=== PATIENT | male | born 1930 | race Caucasian/White ===

== ENCOUNTER 2018-08-01 10:56 | Emergency (ER) | payer MEDICARE, BC ==
[2018-08-01 11:02] VITALS: RESP 18
[2018-08-01] MEDS ORDERED: SODIUM CHLORIDE 0.9% 500 ML 500 ML IV STA (11:16)
--- NOTE | 2018-08-01 11:35 | ED ---
Back Pain HPI - General Chief Complaint: Back Pain/Injury Stated Complaint: fall/back & side pain Time Seen by Provider: 08/01/18 11:08 Source: patient, RN notes reviewed Mode of arrival: ambulatory Limitations: no limitations - History of Present Illness Initial Comments: 87-year-old male presents emergency Department chief complaint of right side pain, abdominal discomfort. Patient states that he fell on Thursday and which this is mechanical fall. Denies any head injury no loss conscious. Patient states he struck the right side of his abdomen and lower rib region. He states now the pain has spread to his mid abdomen. Patient denies any chest pain or shortness of breath. Patient denies any known hematuria, dysuria. Patient states she also has been constipated since the fall states he is unable to have bowel movement. Patient states the pain is mild and states it does worsen with movement. States the worse is when he lays flat. - Related Data Home Medications Medication Instructions Recorded Confirmed Cyanocobalamin [Vitamin B-12 1,000 mcg IM Q30D 09/27/15 08/01/18 Injection] Aspirin EC [Ecotrin Low Dose] 81 mg PO DAILY 08/01/18 08/01/18 Famotidine [Pepcid] 20 mg PO HS 08/01/18 08/01/18 Finasteride [Proscar] 5 mg PO DAILY 08/01/18 08/01/18 Allergies Allergy/AdvReac Type Severity Reaction Status Date / Time No Known Allergies Allergy Verified 08/01/18 11:41 Review of Systems ROS Statement: Those systems with pertinent positive or pertinent negative responses have been documented in the HPI. ROS Other: All systems not noted in ROS Statement are negative. 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 Past Anesthesia/Blood Transfusion Reactions: Postoperative Nausea & Vomiting ( PONV) Past Psychological History: No Psychological Hx Reported Smoking Status: Former smoker - Past Family History Father Family Medical History: CVA/TIA Mother Additional Family Medical History / Comment(s): ASHD General Exam Limitations: no limitations General appearance: alert, in no apparent distress Head exam: Present: atraumatic, normocephalic, normal inspection Eye exam: Present: normal appearance, PERRL, EOMI. Absent: scleral icterus, conjunctival injection, periorbital swelling Neck exam: Present: normal inspection, full ROM. Absent: tenderness, meningismus, lymphadenopathy Respiratory exam: Present: normal lung sounds bilaterally, chest wall tenderness. Absent: respiratory distress, wheezes, rales, rhonchi, stridor Cardiovascular Exam: Present: regular rate, normal rhythm, normal heart sounds. Absent: systolic murmur, diastolic murmur, rubs, gallop, clicks GI/Abdominal exam: Present: soft, tenderness, normal bowel sounds. Absent: distended, guarding, rebound, rigid Back exam: Present: CVA tenderness (R). Absent: CVA tenderness (L) Skin exam: Present: warm, dry, intact, normal color. Absent: rash Course Vital Signs 08/01/18 08/01/18 10:58 13:01 Temperature 97.8 F Pulse Rate 78 73 Respiratory 18 18 Rate Blood Pressure 150/90 136/103 O2 Sat by Pulse 98 96 Oximetry Medical Decision Making - Medical Decision Making 87-year-old male presented for right-sided abdominal pain, flank pain after a fall. CT obtained while with lab work which shows only evidence of constipation. Patient did admit that he's been constipated since Thursday. Patient take [id number] laxative some increase fluid intake and follow-up PCP return parameters were discussed. - Lab Data Result diagrams: 08/01/18 11:15 08/01/18 11:15 Lab Results 08/01/18 08/01/18 08/01/18 Range/Units 11:15 11:15 12:00 WBC 8.1 (3.8-10.6) k/uL RBC 4.93 (4.30-5.90) m/uL Hgb 14.6 (13.0-17.5) gm/dL Hct 46.8 (39.0-53.0) % MCV 94.9 (80.0-100.0) fL MCH 29.6 (25.0-35.0) pg MCHC 31.1 (31.0-37.0) g/dL RDW 12.6 (11.5-15.5) % Plt Count 284 (150-450) k/uL Neutrophils % 69 % Lymphocytes % 20 % Monocytes % 7 % Eosinophils % 2 % Basophils % 0 % Neutrophils # 5.6 (1.3-7.7) k/uL Lymphocytes # 1.7 (1.0-4.8) k/uL Monocytes # 0.5 (0-1.0) k/uL Eosinophils # 0.2 (0-0.7) k/uL Basophils # 0.0 (0-0.2) k/uL Sodium 139 (137-145) mmol/L Potassium 4.6 (3.5-5.1) mmol/L Chloride 104 (98-107) mmol/L Carbon Dioxide 25 (22-30) mmol/L Anion Gap 10 mmol/L BUN 16 (9-20) mg/dL Creatinine 0.63 L (0.66-1.25) mg/dL Est GFR (CKD-EPI)AfAm >90 (>60 ml/min/1.73 sqM) Est GFR (CKD-EPI)NonAf 90 (>60 ml/min/1.73 sqM) Glucose 98 (74-99) mg/dL Calcium 9.6 (8.4-10.2) mg/dL Total Bilirubin 0.7 (0.2-1.3) mg/dL AST 24 (17-59) U/L ALT 26 (21-72) U/L Alkaline Phosphatase 88 (38-126) U/L Total Protein 7.6 (6.3-8.2) g/dL Albumin 4.3 (3.5-5.0) g/dL Lipase 53 (23-300) U/L Urine Color Yellow Urine Appearance Clear (Clear) Urine pH 6.5 (5.0-8.0) Ur Specific [place] 1.011 (1.001-1.035) Urine Protein Negative (Negative) Urine Glucose (UA) Negative (Negative) Urine Ketones Negative (Negative) Urine Blood Negative (Negative) Urine Nitrite Negative (Negative) Urine Bilirubin Negative (Negative) Urine Urobilinogen <2.0 (<2.0) mg/dL Ur Leukocyte Esterase Negative (Negative) - Radiology Data Radiology results: report reviewed, image reviewed CT of abdomen and pelvis shows evidence of constipation no other acute abnormality. Disposition Clinical Impression: Fall, Right flank pain, Constipation Disposition: HOME SELF-CARE Condition: Stable Instructions: Abdominal Pain (ED), Constipation (ED) Additional Instructions: Please return to the Emergency Department if symptoms worsen or any other concerns. Is patient prescribed a controlled substance at d/c from ED?: No Referrals: Eriberto Lewis MD [Primary Care Provider] - 1-2 days Time of Disposition: 13:07
[2018-08-01 11:46] LABS: Basophils % (A) 0 %; Eosinophils # (A) 0.2 k/uL (0-0.7); Eosinophils % (A) 2 %; HCT 46.8 % (39.0-53.0); HGB 14.6 gm/dL (13.0-17.5); Lymphocytes # (A) 1.7 k/uL (1.0-4.8); Lymphocytes % (A) 20 %; MCH 29.6 pg (25.0-35.0); MCHC 31.1 g/dL (31.0-37.0); MCV 94.9 fL (80.0-100.0); Monocytes # (A) 0.5 k/uL (0-1.0); Monocytes % (A) 7 %; Neutrophils # (A) 5.6 k/uL (1.3-7.7); Neutrophils % (A) 69 %; Platelet Count 284 k/uL (150-450); RBC 4.93 m/uL (4.30-5.90); RDW 12.6 % (11.5-15.5); WBC 8.1 k/uL (3.8-10.6)
[2018-08-01 12:05] LABS: ALT 26 U/L (21-72); AST 24 U/L (17-59); Albumin 4.3 g/dL (3.5-5.0); Alkaline Phosphatase 88 U/L (38-126); Anion Gap 10 mmol/L; Blood Urea Nitrogen 16 mg/dL (9-20); Calcium 9.6 mg/dL (8.4-10.2); Carbon Dioxide 25 mmol/L (22-30); Chloride 104 mmol/L (98-107); Glucose 98 mg/dL (74-99); Lipase 53 U/L (23-300); Potassium 4.6 mmol/L (3.5-5.1); Sodium 139 mmol/L (137-145); Total Bilirubin 0.7 mg/dL (0.2-1.3); Total Protein 7.6 g/dL (6.3-8.2)
[2018-08-01 12:22] LABS: Appearance,Urine Clear (Clear); Bilirubin,Urine Negative (Negative); Blood,Urine Negative (Negative); Color,Urine Yellow; Glucose,Urine (UA) Negative (Negative); Ketones,Urine Negative (Negative); Leukocyte Esterase,Urine Negative (Negative); Nitrite,Urine Negative (Negative); PH, Urine 6.5 (5.0-8.0); Protein,Urine Negative (Negative); Specific Gravity,Urine 1.011 (1.001-1.035); Urobilinogen,Urine <2.0 mg/dL (<2.0)
--- NOTE | 2018-08-01 12:54 | CT ---
EXAMINATION TYPE: CT abdomen pelvis w con DATE OF EXAM: 08/01/2018 REFERENCE: NONE HISTORY: pain HISTORY: Right sided back and side pain REFERENCE: NONE CT DLP: 923.3 mGy Automated exposure control for dose reduction was used. TECHNIQUE: Helical acquisition through the abdomen and pelvis was obtained following the oral ingesti on of without Oral Contrast and following intravenous administration of 100 mL of Isovue 300. The pradeep a was reformatted in axial, coronal and sagittal projections. FINDINGS: There is some dependent atelectasis and scarring at the lung bases. There is no pleural or pericardial fluid. The heart is not enlarged. Within the abdomen, the liver, spleen and gallbladder are unremarkable. Both adrenal glands are normal. Both kidneys demonstrate function and appear morphologically normal. The pancreas is unremarkable. There is moderate atheromatous calcification of the visualized arterial tree. There is no significant retroperitoneal, iliac or inguinal adenopathy. The prostate is enlarged. The bladder wall is mildly thickened. This may be secondary to chronic blad rolando outlet obstruction. There is no significant diverticular change. There is no radiographic evidence of diverticulitis. The re is a large amount of stool within the colon. The appendix is not visualized. Small bowel loops are normal. There is no free fluid and no free air identified. There is mild hypertrophic spondylosis and facet arthropathy within the spine. IMPRESSION: 1. CONSTIPATION. 2. PROSTATIC ENLARGEMENT WITH THICKENING OF THE BLADDER WALL. 3. MINIMAL DEGENERATIVE CHANGE WITHIN THE SPINE.
[2018-08-01 13:03] VITALS: PULSE 73
[2018-08-01 13:14] VITALS: BP 120/91
[2018-08-01 13:18] VITALS: TEMP 97.4
== END 2018-08-01 13:17 | disposition home or self-care (01) ==
LOC: EC 10:56
DX: K59.00 Constipation, unspecified (principal); S39.92XA Unspecified injury of lower back, initial encounter; K21.9 Gastro-esophageal reflux disease without esophagitis; M19.90 Unspecified osteoarthritis, unspecified site; Z79.82 Long term (current) use of aspirin; Z79.899 Other long term (current) drug therapy; Z96.651 Presence of right artificial knee joint; Z87.891 Personal history of nicotine dependence; W19.XXXA Unspecified fall, initial encounter
CPT/HCPCS: 36415; 80053; 83690; 85025; 81003; 74177; 99284; 96360; Q9967

== ENCOUNTER → 2018-09-08 | Outpatient (CLI) | payer MEDICARE, BC ==
--- NOTE | 2018-09-08 13:03 | XR ---
EXAMINATION TYPE: XR thoracic spine complete DATE OF EXAM: 09/08/2018 CLINICAL HISTORY: pain TECHNIQUE: Frontal, lateral, and swimmer's view of thoracic spine are obtained. COMPARISON: None. FINDINGS: There is loss of vertebral body height noted at several levels mild in degree of uncertain age and/or etiology. Degenerative disc space narrowing is seen throughout. No bony destructive proces s is appreciated. IMPRESSION: Mild multilevel loss of height noted involving several thoracic vertebral segments of unc ertain age and/or etiology. ICD 10 NO FRACTURE, INITIAL EVALUATION
== END ==
LOC: RADXRMAIN 12:16
PROVIDERS: ATTEND Internal Medicine
DX: M47.24 Other spondylosis with radiculopathy, thoracic region (principal); G58.8 Other specified mononeuropathies
CPT/HCPCS: 72072

== ENCOUNTER → 2018-09-21 | Outpatient (CLI) | payer MEDICARE, BC ==
--- NOTE | 2018-09-21 15:10 | NM ---
EXAMINATION TYPE: NM bone/joint limited DATE OF EXAM: 09/21/2018 COMPARISON: NONE HISTORY: Spondylosis with radiculopathy TECHNIQUE: After the intravenous administration of 25.4 mCi Tc 99m MDP. Images acquired 3.5 hours p ost injection. Multiple views of thoracic level are submitted. Findings: There are are some focal radiotracer accumulation is present within the thoracic region. Th is would include 2 areas on the posterior right rib, additional area in the posterior lateral right 1 1th rib region. Some uptake may be present on the posterior lateral left ninth rib. There is focal radiotracer accumulation within the T10 vertebral level. On the upper anterior lateral portions of the ribs in the region of the right anterior lateral rib th ere is focal uptake along the fourth and fifth anterior lateral left ribs. IMPRESSION: 1. Suspicious focal radiotracer accumulation within the region of the T10 vertebral level. Correlate for acute compression. Metastatic disease should be considered. This area could be compatible with an acute compression deformity. Compression deformity is identified corresponding 09/08/2018 comparison thoracic spine. 2. There are scattered bilateral focal areas of rib uptake. Distribution is atypical for post trauma , which could be considered. Consider metastatic disease.
== END ==
LOC: RADNMMAIN 10:08
PROVIDERS: ATTEND Internal Medicine
DX: G58.8 Other specified mononeuropathies (principal); M47.24 Other spondylosis with radiculopathy, thoracic region
CPT/HCPCS: 78300; A9503

== ENCOUNTER → 2018-12-08 | Outpatient (CLI) | payer MEDICARE, BC ==
--- NOTE | 2018-12-08 16:10 | XR ---
EXAMINATION TYPE: XR ribs bilateral DATE OF EXAM: 12/08/2018 COMPARISON: 09/21/2018 bone scan HISTORY: Bilateral anterior rib pain after fall TECHNIQUE: Frontal and oblique views of the bilateral ribs were obtained FINDINGS: There is generalized osseous demineralization. There are healed fracture deformities of the right eig hth through 10th lateral ribs and sixth rib. On the left there are healed fracture deformities of the 8 and seventh ribs at their lateral margin and subtle anterior ninth rib fracture. The posterior lat eral right rib 11 fracture seen on the prior nuclear medicine exam and uptake in the T10 vertebral stanley dy are not demonstrated radiographically. No acute fracture of the ribs is seen. IMPRESSION: Bilateral healed fractures as described above. There is no correlate for the previously s een posterior lateral right rib 11 fracture nor uptake in the 10th vertebral body as seen on the prio r nuclear medicine bone scan of 09/21/2018. If there is further concern CT thorax could evaluate for os seous lesion.
== END | disposition home or self-care (01) ==
LOC: RADXRMAIN 11:23
PROVIDERS: ATTEND Internal Medicine
DX: G58.8 Other specified mononeuropathies (principal); Z87.81 Personal history of (healed) traumatic fracture
CPT/HCPCS: 71110

== ENCOUNTER 2020-05-28 12:35 | Inpatient (IN) | payer MEDICARE, BC ==
--- NOTE | 2020-05-28 13:37 | ED ---
General Adult HPI - General Chief complaint: Neuro Symptoms/Deficit Stated complaint: Weakness, Slurred Speech Time Seen by Provider: 05/28/20 13:05 Source: patient, family, RN notes reviewed Mode of arrival: ambulatory Limitations: no limitations - History of Present Illness Initial comments: Patient is a pleasant 89-year-old male presenting to the emergency Department with complaints of episodes of slurred speech. Onset of symptoms was 2-3 days ago. Patient has had at least 5 or 6 episodes, possibly more. Patient does have chronic dizziness and lightheadedness however this is a little but worse than normal. Patient has chronic leg weakness that is unchanged. Currently patient is symptom-free. No headache. No upper extremity weakness. No history of similar symptoms previously. - Related Data Home Medications Medication Instructions Recorded Confirmed Cyanocobalamin [Vitamin B-12 1,000 mcg IM Q30D 09/27/15 05/28/20 Injection] Finasteride [Proscar] 5 mg PO DAILY 08/01/18 05/28/20 Multivitamins, Thera [Multivitamin 1 tab PO HS 05/28/20 05/28/20 (formulary)] Omeprazole 20 mg PO HS 05/28/20 05/28/20 Tamsulosin [Flomax] 0.4 mg PO W/SUPPER 05/28/20 05/28/20 Allergies Allergy/AdvReac Type Severity Reaction Status Date / Time No Known Allergies Allergy Verified 05/28/20 14:13 Review of Systems ROS Statement: Those systems with pertinent positive or pertinent negative responses have been documented in the HPI. ROS Other: All systems not noted in ROS Statement are negative. Constitutional: Denies: fever Eyes: Denies: eye pain ENT: Denies: ear pain Respiratory: Denies: cough Cardiovascular: Denies: chest pain Endocrine: Denies: fatigue Gastrointestinal: Denies: abdominal pain Genitourinary: Denies: urgency Musculoskeletal: Denies: back pain Skin: Denies: rash Neurological: Reports: as per HPI, vertigo. 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 Past Anesthesia/Blood Transfusion Reactions: Postoperative Nausea & Vomiting (PONV) Past Psychological History: No Psychological Hx Reported Smoking Status: Never smoker Past Alcohol Use History: Rare Past Drug Use History: None Reported - Past Family History Father Family Medical History: CVA/TIA Mother Additional Family Medical History / Comment(s): ASHD General Exam Limitations: no limitations General appearance: alert, in no apparent distress Head exam: Present: normocephalic Eye exam: Present: normal appearance, PERRL, EOMI. Absent: nystagmus ENT exam: Present: normal oropharynx Neck exam: Present: normal inspection Respiratory exam: Present: normal lung sounds bilaterally Cardiovascular Exam: Present: regular rate, normal rhythm GI/Abdominal exam: Present: soft. Absent: tenderness Extremities exam: Present: normal inspection Neurological exam: Present: alert, oriented X3, CN II-XII intact. Absent: motor sensory deficit Expanded Neurological exam: Present: protecting the airway Patient oriented to: Present: person, place, time Speech: Present: fluid speech Cranial nerves: EOM's Intact: Normal Sensory exam: Upper Extremity Light Touch: Normal, Lower Extremity Light Touch: Normal Motor strength exam: RUE: 5, LUE: 5, RLE: 5, LLE: 5 Eye Response: (4) open spontaneously Motor Response: (6) obeys commands Verbal Response: (5) oriented Psychiatric exam: Present: normal affect, normal mood Skin exam: Present: normal color Course Vital Signs 05/28/20 05/28/20 05/28/20 12:53 14:22 15:12 Temperature 97.9 F Pulse Rate 79 79 79 Respiratory 18 14 14 Rate Blood Pressure 138/84 134/102 143/93 O2 Sat by Pulse 97 97 96 Oximetry EKG Findings - EKG Comments: EKG Findings:: Normal sinus rhythm 74. For screening AV block NH of 208. QRS 96. QT 392. QTC 435. Normal axis. Normal QRS. No acute ST change. Medical Decision Making - Medical Decision Making Patient reevaluated and resting comfortably at bedside. Patient family updated on results and plan. Case was discussed in detail with Dr. Fontana, who will admit for hospital call. - Lab Data Result diagrams: 05/28/20 13:30 05/28/20 13:30 Lab Results 05/28/20 05/28/20 05/28/20 Range/Units 13:30 13:30 13:30 WBC 7.6 (3.8-10.6) k/uL RBC 4.66 (4.30-5.90) m/uL Hgb 14.6 (13.0-17.5) gm/dL Hct 44.7 (39.0-53.0) % MCV 96.0 (80.0-100.0) fL MCH 31.4 (25.0-35.0) pg MCHC 32.7 (31.0-37.0) g/dL RDW 12.4 (11.5-15.5) % Plt Count 239 (150-450) k/uL Neutrophils % 61 % Lymphocytes % 25 % Monocytes % 7 % Eosinophils % 6 % Basophils % 0 % Neutrophils # 4.6 (1.3-7.7) k/uL Lymphocytes # 1.9 (1.0-4.8) k/uL Monocytes # 0.5 (0-1.0) k/uL Eosinophils # 0.5 (0-0.7) k/uL Basophils # 0.0 (0-0.2) k/uL PT 10.2 (9.0-12.0) sec INR 1.0 (<1.2) APTT 23.6 (22.0-30.0) sec Sodium 137 (137-145) mmol/L Potassium 4.2 (3.5-5.1) mmol/L Chloride 101 (98-107) mmol/L Carbon Dioxide 30 (22-30) mmol/L Anion Gap 6 mmol/L BUN 12 (9-20) mg/dL Creatinine 0.64 L (0.66-1.25) mg/dL Est GFR (CKD-EPI)AfAm >90 (>60 ml/min/1.73 sqM) Est GFR (CKD-EPI)NonAf 88 (>60 ml/min/1.73 sqM) Glucose 89 (74-99) mg/dL Calcium 9.3 (8.4-10.2) mg/dL Total Bilirubin 0.7 (0.2-1.3) mg/dL AST 23 (17-59) U/L ALT 17 (4-49) U/L Alkaline Phosphatase 69 (38-126) U/L Total Protein 6.9 (6.3-8.2) g/dL Albumin 3.9 (3.5-5.0) g/dL - Radiology Data Radiology results: report reviewed (Computed tomography scan of the brain shows degenerative and nonspecific white matter changes. No acute hemorrhage or mass effect. Sinusitis. CT angios without acute abnormality.), image reviewed (Chest x-ray shows atelectasis versus early infiltrate. Tortuous versus ectatic/aneurysm thoracic order.) Disposition Clinical Impression: Transient cerebral ischemia Disposition: ADMITTED IP TO THIS HOSP Is patient prescribed a controlled substance at d/c from ED?: No Referrals: Rocco Rose MD [Primary Care Provider] - 1-2 days Decision Time: 16:17
[2020-05-28 13:46] LABS: Basophils % (A) 0 %; Eosinophils # (A) 0.5 k/uL (0-0.7); Eosinophils % (A) 6 %; HCT 44.7 % (39.0-53.0); HGB 14.6 gm/dL (13.0-17.5); Lymphocytes # (A) 1.9 k/uL (1.0-4.8); Lymphocytes % (A) 25 %; MCH 31.4 pg (25.0-35.0); MCHC 32.7 g/dL (31.0-37.0); Mean Platelet Volume 6.4; Monocytes # (A) 0.5 k/uL (0-1.0); Monocytes % (A) 7 %; Neutrophils # (A) 4.6 k/uL (1.3-7.7); Neutrophils % (A) 61 %; Platelet Count 239 k/uL (150-450); RBC 4.66 m/uL (4.30-5.90); RDW 12.4 % (11.5-15.5); WBC 7.6 k/uL (3.8-10.6)
[2020-05-28 13:54] LABS: ALT 17 U/L (4-49); AST 23 U/L (17-59); African American GFR (CKD) >90 (>60 ml/min/1.73 sqM); Albumin 3.9 g/dL (3.5-5.0); Alkaline Phosphatase 69 U/L (38-126); Anion Gap 6 mmol/L; Blood Urea Nitrogen 12 mg/dL (9-20); Calcium 9.3 mg/dL (8.4-10.2); Carbon Dioxide 30 mmol/L (22-30); Chloride 101 mmol/L (98-107); Glucose 89 mg/dL (74-99); Non-African American GFR(CKD) 88 (>60 ml/min/1.73 sqM); Potassium 4.2 mmol/L (3.5-5.1); Sodium 137 mmol/L (137-145); Total Bilirubin 0.7 mg/dL (0.2-1.3); Total Protein 6.9 g/dL (6.3-8.2)
[2020-05-28 13:59] LABS: Partial Thromboplastin Time 23.6 sec (22.0-30.0); Prothrombin Time 10.2 sec (9.0-12.0)
--- NOTE | 2020-05-28 14:52 | CT ---
EXAMINATION TYPE: CT brain wo con for TPA DATE OF EXAM: 05/28/2020 COMPARISON: None HISTORY: Weakness with slurred speech for last [address] DLP: 1176.8 mGycm Automated exposure control for dose reduction was used. FINDINGS: Moderate generalized degenerative change. Nonspecific low attenuation in the white matter. No evidenc e of acute hemorrhage or mass effect. Low attenuation left basal ganglia suggestive of remote ischemi a. Calvarium intact. Changes of sinusitis. Craniocervical junction maintained. Sella turcica has a normal appearance. Nasal septal deviation not ed. Orbits symmetric. IMPRESSION: DEGENERATIVE AND NONSPECIFIC WHITE MATTER CHANGES MOST TYPICAL OF REMOTE WHITE MATTER ISCHEMIA. NO AC CHENG HEMORRHAGE OR MASS EFFECT. EXTENSIVE CHANGES OF SINUSITIS.
--- NOTE | 2020-05-28 15:13 | XR ---
EXAMINATION TYPE: XR chest 2V DATE OF EXAM: 05/28/2020 COMPARISON: 12/08/2018 and 09/08/2018 HISTORY: 89-year-old male confusion, altered mental status TECHNIQUE: PA and lateral views FINDINGS: Heart normal size. Tortuous/ectatic thoracic aorta. Hyperinflation. No tona consolidation. No pleura l effusion. Patchy posterior basilar opacity on the lateral view. Mild anterior wedging of a midthora cic vertebral body unchanged from 2019. IMPRESSION: Patchy posterior basilar atelectasis versus early infiltrate. Correlate with patient's symptoms. Tort uous versus ectatic/aneurysmal thoracic aorta.
--- NOTE | 2020-05-28 15:22 | CT ---
EXAMINATION TYPE: CT angio head neck DATE OF EXAM: 05/28/2020 HISTORY: Generalized weakness with slurred speech for 2 days COMPARISON: 05/28/2020 CT DLP: 498.9 mGycm. Automated Exposure Control for Dose Reduction was Utilized. TECHNIQUE: CTA scan of the neck is performed with IV Contrast, patient injected with 65 mL of Isovue 370, axial images are obtained, coronal and sagittal reformatted images are reviewed. Three-D recons tructed images are created on an independent workstation and reviewed. FINDINGS: Biapical pleural thickening. Changes of COPD noted. There is atherosclerotic change of the aorta. Origins of the great vessels appear to be patent. Subclavian arteries are patent. Carotid bifu rcations are patent. The visualized portions of the internal carotid arteries are patent. Changes of chronic sinusitis noted. Airways patent. Vocal cords symmetric. Thyroid enhances normally. Shotty adenopathy in the neck with no pathologic adenopathy. Hypertrophic and degenerative changes o f the spine are noted. Left vertebral artery is dominant. Vertebrobasilar system is patent. Posterior cerebral arteries are patent Middle and anterior cerebral arteries appear to be patent. No sizable aneurysm or vascular malformati on. IMPRESSION: 1. Carotid bifurcations as well as visualized intracranial arterial system appears to be patent with no sizable aneurysm.
[2020-05-28] MEDS ORDERED: ASPIRIN 325 MG TAB PO STA (16:16)
[2020-05-28] MEDS: SODIUM CHLORIDE 0.9% 1,000 ML IV SCH ×2 (16:36→21:03)
[2020-05-28] MEDS ORDERED: HYDROcodone/APAP 5-325MG 1 EACH TAB PO PRN (20:38)
[2020-05-28] MEDS ORDERED: ALPRAZolam 0.25 MG TAB PO PRN (20:38)
[2020-05-28] MEDS: HEPARIN SODIUM,PORCINE 5,000 UNIT/ML 1 ML VIAL SQ SCH (21:05)
[2020-05-28] MEDS: PANTOPRAZOLE 40 MG TABLET PO SCH (21:05)
[2020-05-28] MEDS: MULTIVITAMINS, THERA 1 EACH TAB PO SCH (21:05)
--- NOTE | 2020-05-28 22:12 | HP ---
HISTORY AND PHYSICAL CHIEF COMPLAINTS: Slurring of speech as well as weakness. HISTORY OF PRESENT ILLNESS: This 89-year-old gentleman with a past medical history of asthma, GERD, DJD, hernia surgery, orthopedic surgery, was complaining of weakness. The patient had episodes of slurred speech. He was taken to the emergency room, which happened about 2-3 days ago. The patient had multiple episodes. The patient was also complaining of weakness. His weakness was possibly because of DJD in the legs, but the weakness in both legs increased, according to him. There is no history of any fever, rigor or chills. No history of headache, loss of consciousness, seizures. After the ER, the patient had multiple evaluations, including CT brain, which showed degenerate nonspecific white matter changes and remote ischemia. No acute changes are noted. CT angiography showed no sizable aneurysm or other abnormalities. Chest x-ray showed patchy atelectasis in the posterior part. EKG showed normal sinus rhythm. Patient is admitted for further evaluation and treatment. There is no history of any fever, rigor or chills. No history of headache, loss of consciousness, seizures. PAST MEDICAL HISTORY: Asthma, GERD, history of DJD, COPD, hernia repair, orthopedic surgery. MEDICATIONS: Flomax, omeprazole, multivitamins, Proscar, vitamin B12. ALLERGIES: NONE. FAMILY HISTORY: History of CVA, TIA in the family. SOCIAL HISTORY: Previous history of smoking. No current smoking or alcohol intake. REVIEW OF SYSTEMS: ENT: Diminished hearing. Diminished vision. CARDIOVASCULAR SYSTEM: No angina, palpitations. RESPIRATORY SYSTEM: As mentioned earlier. GI: No nausea, vomiting. : No dysuria or retention. NERVOUS SYSTEM: As mentioned earlier. ALLERGY/IMMUNOLOGY: No asthma or hayfever. MUSCULOSKELETAL: As mentioned earlier. HEMATOLOGY/ONCOLOGY: No history of anemia. ENDOCRINE: No history of diabetes, hypothyroidism. CONSTITUTIONAL: As mentioned earlier. DERMATOLOGY: Negative. RHEUMATOLOGY negative. PSYCHIATRY as mentioned earlier. PHYSICAL EXAMINATION: Alert and x3. Pulse 85, blood pressure 150/97, respiration 14, temperature 97.9, pulse ox 96% on 2 L. HEENT: Conjunctivae normal. NECK: No jugular venous distention. CARDIOVASCULAR SYSTEM: S1, S2 muffled. RESPIRATORY SYSTEM: Breath sounds diminished at the bases. A few scattered rhonchi and crackles. ABDOMEN: Soft, non-tender. No mass palpable. LEGS: No edema. No swelling. NERVOUS SYSTEM: Higher functions as mentioned earlier. Cranial nerves 2 through 12 grossly intact. No nystagmus. No diplopia. Upper limbs are normal. Finger-nose coordination is normal. Otherwise, lower limbs appear to be 4+ power in both lower limbs. No sensory abnormalities. LYMPHATICS: No lymph node palpable in neck, axillae or groin. L JOINTS: No active deforming arthropathy. LABS: CBC within normal limits. Creatinine 0.64. ASSESSMENT: 1. Slurring of speech and bilateral leg weakness; rule out transient ischemic attack. 2. Abnormal chest x-ray, possibly secondary to chronic fibrosis; rule out acute pneumonia. 3. History of asthma. 4. History of gastroesophageal reflux disease. 5. History of degenerative joint disease. 6. History of chronic obstructive pulmonary disease. 7. Remote history of nicotine dependence. 8. History of vertigo in the past. 9. Degenerative joint disease. 10.History of postoperative nausea, vomiting. RECOMMENDATIONS AND DISCUSSION: In this 89-year-old gentleman who presented with multiple complex medical issues, we will monitor the patient closely. Neuro checks. Full neurovascular workup. A CT angio has already been done. I would recommend neurology consultation as well as a 2D echo with Doppler. Antiplatelet agents. Check lipids. Monitor blood pressure closely. Resume the home medications. Prognosis is guarded because of multiple complex medical issues. Further recommendations to follow. MMODL / IJN: [id number] /
[2020-05-28 23:50] LABS: Appearance,Urine Clear (Clear); Bilirubin,Urine Negative (Negative); Blood,Urine Negative (Negative); Color,Urine Yellow; Glucose,Urine (UA) Negative (Negative); Ketones,Urine Negative (Negative); Leukocyte Esterase,Urine Negative (Negative); Nitrite,Urine Negative (Negative); PH, Urine 7.5 (5.0-8.0); Protein,Urine Negative (Negative); Specific Gravity,Urine 1.022 (1.001-1.035); Urobilinogen,Urine <2.0 mg/dL (<2.0)
[2020-05-29 07:53] LABS: Basophils % (A) 0 %; Eosinophils # (A) 0.5 k/uL (0-0.7); Eosinophils % (A) 8 %; HCT 44.2 % (39.0-53.0); HGB 14.1 gm/dL (13.0-17.5); Lymphocytes % (A) 28 %; MCH 31.1 pg (25.0-35.0); MCV 97.1 fL (80.0-100.0); Mean Platelet Volume 6.5; Monocytes # (A) 0.5 k/uL (0-1.0); Monocytes % (A) 7 %; Neutrophils # (A) 3.9 k/uL (1.3-7.7); Neutrophils % (A) 55 %; Platelet Count 230 k/uL (150-450); RBC 4.55 m/uL (4.30-5.90); RDW 12.5 % (11.5-15.5)
[2020-05-29 08:06] LABS: African American GFR (CKD) >90 (>60 ml/min/1.73 sqM); Anion Gap 4 mmol/L; Blood Urea Nitrogen 10 mg/dL (9-20); Calcium 9.3 mg/dL (8.4-10.2); Carbon Dioxide 31 mmol/L (22-30); Chloride 103 mmol/L (98-107); Cholesterol 108 mg/dL (<200); Glucose 101 mg/dL (74-99); HDL Cholesterol 40 mg/dL (40-60); LDL Cholesterol,Calculated 56 mg/dL (0-99); Non-African American GFR(CKD) 88 (>60 ml/min/1.73 sqM); Potassium 4.4 mmol/L (3.5-5.1); Sodium 138 mmol/L (137-145); Triglycerides 61 mg/dL (<150)
[2020-05-29] MEDS: HEPARIN SODIUM,PORCINE 5,000 UNIT/ML 1 ML VIAL SQ SCH ×2 (08:33→20:22)
[2020-05-29] MEDS: FINASTERIDE 5 MG TAB PO SCH (08:33)
--- NOTE | 2020-05-29 09:36 | CT ---
EXAMINATION TYPE: CT chest wo con DATE OF EXAM: 05/29/2020 COMPARISON: None HISTORY: possible fibrosis CT DLP: 362.5 mGycm, Automated exposure control for dose reduction was used. CONTRAST: Performed injected with 0 mL of Isovue 300. TECHNIQUE: Axial images were obtained at 5 mm thick sections. Reconstructed images are reviewed on [employer] computer in the coronal plane. FINDINGS: Portion of the thyroid visualized is normal. There are scattered infiltrates at the bilateral lung bases. Emphysematous changes are present. No enlarged mediastinal or hilar adenopathy is evident. Scattered small shotty lymph nodes are prese nt. No suspicious enlarged mediastinal or hilar lymph nodes are evident. Lack of contrast limits the hilar node evaluation. The aortic arch appears to be high riding in the apex. The ascending aorta floridalma meter at the level of the main pulmonary artery is 4.1 cm. The main pulmonary artery diameter at the bifurcation is 3.0 cm. Mild coronary artery calcification is present. Limited CT sections are obtained through the upper abdomen. Abdomen is essentially unremarkable. IMPRESSIONS: 1. Scattered of posterior inferior mild infiltrates can be related to subsegmental atelectasis. 2. COPD
[2020-05-29] MEDS: ASPIRIN 325 MG TAB PO SCH (11:19)
--- NOTE | 2020-05-29 12:20 | ECHOF ---
Referral Reason:Thrombus MEASUREMENTS -------- HEIGHT: 177.8 cm WEIGHT: 72.6 kg BP: 140/83 RVIDd: 2.1 cm (< 3.3) IVSd: 1.4 cm (0.6 - 1.1) LVIDd: 3.5 cm (3.9 - 5.3) LVPWd: 1.6 cm (0.6 - 1.1) IVSs: 1.9 cm LVIDs: 2.1 cm LVPWs: 1.7 cm Ao Diam: 3.3 cm (2.0 - 3.7) AV Cusp: 1.7 cm (1.5 - 2.6) LA Diam: 2.0 cm (2.7 - 3.8) MV EXCURSION: 13.189 mm (> 18.000) MV EF SLOPE: 73 mm/s (70 - 150) EPSS: 0.7 cm MV E Francisco: 0.57 m/s MV DecT: 259 ms MV A Francisco: 0.69 m/s MV E/A Ratio: 0.82 RAP: 5.00 mmHg RVSP: 29.86 mmHg FINDINGS -------- Sinus rhythm. This was a technically adequate study. The left ventricular size is normal. There is moderate concentric left ventricular hypertrophy. O verall left ventricular systolic function is normal with, an EF between 55 - 60 %. The right ventricle is normal in size. The left atrial size is normal. The right atrial size is normal. There is mild aortic valve sclerosis. Mild mitral annular calcification present. Mild mitral regurgitation is present. The tricuspid valve appears structurally normal. Mild tricuspid regurgitation present. Right vent ricular systolic pressure is normal at < 35 mmHg. The pulmonic valve was not well visualized. There is no pulmonic regurgitation present. The aortic root size is normal. Normal inferior vena cava with normal inspiratory collapse consistent with estimated right atrial pre ssure of 5 mmHg. There is a small, generalized pericardial effusion present. CONCLUSIONS -------- 1. There is moderate concentric left ventricular hypertrophy. 2. Overall left ventricular systolic function is normal with, an EF between 55 - 60 %. 3. The left atrial size is normal. 4. There is mild aortic valve sclerosis. 5. Mild mitral annular calcification present. 6. Mild mitral regurgitation is present. 7. Mild tricuspid regurgitation present. 8. There is a small, generalized pericardial effusion present. PRINCIPAL JAVA DEVELOPER: Deirdre Bloom RDCS
--- NOTE | 2020-05-29 14:02 | P.CNNES ---
History of Present Illness Consult date: 05/29/20 Requesting physician: Be Trevizo Reason for Consult: TIA History of Present Illness: Patient is a 89-year-old male, came to the hospital yesterday at around 12:30 PM, for evaluation of episodes of slurred speech, that started 2-3 days ago. As per EMS records, patient had at least 5 or 6 episodes or possibly more. He has chronic dizziness and lightheadedness, which is slightly worse than normal. He is chronically leg weakness that is unchanged. Patient tells me that he has chronic slight weakness of the legs and aching, which his primary physician felt was related to arthritis of the lumbar spine. However yesterday he was trying to get up from chair, felt funny, legs were weaker than usual. He has been otto ving slurred speech off and on, lasting for a short while for the last 7 days. At present he complains of no symptoms. He states that he had slight slurred speech earlier today but otherwise has been feeling better. Vital signs on arrival blood pressure 138/84, pulse rate 79, temperature 97.9. Blood pressure was normal CBC, PT/PTT, CMP, UA are all normal or negative. CT head showed degenerative and nonspecific white matter changes most typical of remote white matter ischemia. No acute hemorrhage or mass effect. CTA of head and neck showed no significant stenosis or aneurysm. EKG shows normal sinus rhythm. Chest x-ray showed patchy posterior basilar atelectasis versus early infiltrate. Tortuous versus ectatic aneurysmal thoracic aorta.CT of the chest showed scattered posterior nferior mild infiltrates, can be related to subsegmental atelectasis. COPD Patient does not take any antiplatelets at home. He has been started on aspirin 325 mg yesterday. patient states that he did take an aspirin5 days ago only once. Does not take it regularly. Patient denies any nausea or vomiting. Denies any diplopia or facial droop. Denies any history of hypertension or diabetes. He has smoked 1 pack per day for 50 years, quit 20 years ago. Review of Systems as above in detail, otherwise unremarkable. Denies any chest pain shortness of breath wheezing or cough. He has some aching in the legs, some weakness in the legs. 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 Past Anesthesia/Blood Transfusion Reactions: Postoperative Nausea & Vomiting (PONV) Past Psychological History: No Psychological Hx Reported Additional Psychological History / Comment(s): PT STATED HE LOST HIS IN AUGUST 2015. HAS SOME PERIODS OF SADNESS. Smoking Status: Never smoker Past Alcohol Use History: Rare Additional Past Alcohol Use History / Comment(s): QUIT SMOKING 1995, STARTED 1950, SMOKED 1PPD Past Drug Use History: None Reported - Past Family History Father Family Medical History: CVA/TIA Mother Additional Family Medical History / Comment(s): ASHD Medications and Allergies Home Medications Medication Instructions Recorded Confirmed Type Cyanocobalamin [Vitamin B-12 1,000 mcg IM Q30D 09/27/15 05/28/20 History Injection] Finasteride [Proscar] 5 mg PO DAILY 08/01/18 05/28/20 History Multivitamins, Thera [Multivitamin 1 tab PO HS 05/28/20 05/28/20 History (formulary)] Omeprazole 20 mg PO HS 05/28/20 05/28/20 History Tamsulosin [Flomax] 0.4 mg PO W/SUPPER 05/28/20 05/28/20 History Allergies Allergy/AdvReac Type Severity Reaction Status Date / Time No Known Allergies Allergy Verified 05/28/20 14:13 Physical Examination - Vital Signs Vital Signs: Vital Signs Temp Pulse Pulse Pulse Pulse Resp BP 05/29/20 08:29 98.1 F 79 18 05/29/20 03:58 97.9 F 77 16 05/28/20 23:21 97.8 F 68 81 81 18 05/28/20 20:00 97.3 F L 83 16 05/28/20 19:35 85 18 05/28/20 18:46 97.9 F 85 14 150/97 05/28/20 18:35 97.9 F 85 14 150/97 05/28/20 17:38 98 F 76 14 149/101 05/28/20 16:44 97.6 F 74 14 148/91 05/28/20 16:39 97.6 F 86 14 148/91 05/28/20 16:00 87 21 139/101 05/28/20 15:12 79 14 143/93 05/28/20 14:22 79 14 134/102 05/28/20 12:53 97.9 F 79 18 138/84 BP BP BP Pulse Ox 05/29/20 08:29 130/83 95 05/29/20 03:58 140/83 91 L 05/28/20 23:21 149/88 143/81 133/82 93 L 05/28/20 20:00 126/82 98 05/28/20 19:35 138/76 94 L 05/28/20 18:46 96 05/28/20 18:35 96 05/28/20 17:38 96 05/28/20 16:44 96 05/28/20 16:39 94 L 05/28/20 16:00 98 05/28/20 15:12 96 05/28/20 14:22 97 05/28/20 12:53 97 Intake and Output 05/28/20 05/29/20 05/29/20 22:59 06:59 14:59 Intake Total 240 120 420 Output Total 400 1 Balance 240 -280 419 Intake: Oral 240 120 420 Output: Urine 400 1 Other: # Voids 1 1 Weight 72.575 kg 73 kg On examination patient is an elderly male, very pleasant in no acute distress. Patient is alert awake oriented to time place and person. Speech and language functions are normal. Attention and concentration fund of knowledge is adequate. On cranial nerve examination pupils are round and reactive to light, visual kuhn are full on confrontation, extraocular muscles are intact with no nystagmus. Face is symmetric, tongue protrudes the midline. Palatal elevation and sensation normal, hearing is slightly decreased, and shoulder shrug normal. facial sensations normal. On muscle strength testing there is no pronator drift and the strength is normal in arms and legs distally and proximally. Reflexes are very hypoactive and plantars are downgoing. Sensory touch is equal. No ataxia for [id number] testing. Tone and bulk of muscles normal. Gait deferred. There is no carotid bruit or murmur, S1 and S2 audible peripheral pulses present no edema. Chest is clear, abdomen soft nontender. Results - Laboratory Findings CBC and BMP: 05/29/20 07:16 05/29/20 07:16 Abnormal Lab Findings: Abnormal Labs 05/28/20 05/29/20 13:30 07:16 Carbon Dioxide 31 H Creatinine 0.64 L 0.65 L Glucose 101 H Assessment and Plan Assessment: * Recurrent episodes of slurred speech, possible TIA. CTA of head and neck showed no large vessel disease. * X tobacco use. Plan: * 2-D echo showed moderate concentric LVH, EF is between 55-60%. Left atrial size is normal. Mild aortic valve sclerosis. * CTA of head and neck showed no significant stenosis or occlusion. * lipid panel showed cholesterol 108, LDL 56, HDL 40 and triglycerides 61. Lipids are already well controlled. No indication for statins. * Hemoglobin A1c pending. * Continue aspirin 325 mg daily. * Telemetry monitoring showing sinus rhythm with sinus tachycardia with occasional PVCs. First-degree AV block. No atrial fibrillation. * Continue to observe overnight and assess for the frequency of "possible TIAs".
--- NOTE | 2020-05-29 15:28 | PN ---
PROGRESS NOTE DATE OF SERVICE: 05/29/2020 This 89-year-old gentleman, admitted with slurring of speech as well as weakness, is being closely monitored. Neurology evaluation in progress. Chest CT scan showed possibly scattered posterior inferior mild infiltrates and some COPD also. Two-D echo with Doppler was done by Cardiology which showed an ejection fraction about 50% to 60%. Past medical history reviewed. REVIEW OF SYSTEMS: CARDIOVASCULAR SYSTEM: No angina, palpitations. RESPIRATORY SYSTEM: As mentioned earlier. GI: No nausea, vomiting, diarrhea. : No dysuria or retention. NERVOUS SYSTEM: As mentioned earlier. PHYSICAL EXAMINATION: Alert, oriented x3. Pulse 71, blood pressure 166/92, respirations 16, temperature 97.7, pulse ox 94% on room air. HEENT: Conjunctivae normal. NECK: No jugular venous distention. CARDIOVASCULAR SYSTEM: S1, S2 muffled. RESPIRATORY SYSTEM: Breath sounds diminished at the bases. A few rhonchi. No crackles. ABDOMEN: Soft. NERVOUS SYSTEM: Minimal weakness in both legs. Otherwise no focal deficit. LABS: CBC and BMP noted. ASSESSMENT: 1. Slurring of speech and bilateral leg weakness; possible acute transient ischemic attack. 2. Chronic obstructive pulmonary disease as well as scattered posterior inferior mild infiltrates, possibly pneumonia, community-acquired. 3. History of asthma. 4. History of gastroesophageal reflux disease. 5. History of degenerative joint disease. 6. History of chronic obstructive pulmonary disease. 7. Remote history of nicotine dependence. 8. History of vertigo in the past. 9. Degenerative joint disease. 10.History of postoperative nausea, vomiting. RECOMMENDATIONS AND DISCUSSION: I recommend to continue current medications, continue with the monitoring, symptomatic treatment. Otherwise, continue with antiplatelets and I would recommend a course of antibiotics. Closely follow with Neurology. Further recommendations to follow. MMODL / IJN: [id number] /
[2020-05-29] MEDS ORDERED: TAMSULOSIN 0.4 MG CAP.ER.24H PO SCH (17:30)
[2020-05-29] MEDS: PANTOPRAZOLE 40 MG TABLET PO SCH (20:22)
[2020-05-29] MEDS: MULTIVITAMINS, THERA 1 EACH TAB PO SCH (20:22)
[2020-05-29 21:06] LABS: Hemoglobin A1C 5.9 % (4.0-6.0)
[2020-05-29] MEDS: SODIUM CHLORIDE 0.9% 1,000 ML IV SCH (23:50)
[2020-05-30 07:50] VITALS: BP 139/86; PULSE 92; RESP 16; TEMP 97.4
[2020-05-30] MEDS: ASPIRIN 325 MG TAB PO SCH (08:00)
[2020-05-30] MEDS: HEPARIN SODIUM,PORCINE 5,000 UNIT/ML 1 ML VIAL SQ SCH (08:00)
[2020-05-30] MEDS: FINASTERIDE 5 MG TAB PO SCH (08:00)
[2020-05-30 11:43] LABS: Basophils % (A) 0 %; Eosinophils # (A) 0.4 k/uL (0-0.7); Eosinophils % (A) 6 %; Lymphocytes % (A) 34 %; MCH 31.1 pg (25.0-35.0); MCHC 31.8 g/dL (31.0-37.0); MCV 97.8 fL (80.0-100.0); Mean Platelet Volume 7.3; Monocytes # (A) 0.4 k/uL (0-1.0); Monocytes % (A) 7 %; Neutrophils % (A) 51 %; Platelet Count 228 k/uL (150-450); RBC 4.19 m/uL (4.30-5.90); WBC 5.9 k/uL (3.8-10.6)
--- NOTE | 2020-05-31 06:19 | DS ---
DISCHARGE SUMMARY DATE OF SERVICE: 05/30/2020 FINAL DIAGNOSES: 1. Slurring of speech and bilateral leg weakness, possible acute transient ischemic attack. 2. Chronic obstructive pulmonary disease as well as scattered posterior-inferior infiltrates possibly a bronchopneumonia, community acquired, improved. 3. History of asthma. 4. History of gastroesophageal reflux disease. 5. History of degenerative joint disease. 6. History of chronic obstructive pulmonary disease. 7. Remote history of nicotine dependence. 8. History of vertigo in the past. 9. Degenerative joint disease. 10.Postoperative nausea, vomiting. DISCHARGE DISPOSITION: The patient will be discharged in stable condition with guarded prognosis. HISTORY OF PRESENT ILLNESS: This 89-year-old gentleman with a past medical history of multiple medical problems admitted with features of TIA, treated symptomatically, improved significantly. The patient was given a course of antibiotics. Neurology saw the patient, basically neuro was negative. On exam, vitals are stable. CARDIOVASCULAR: S1, S2 muffled. ABDOMEN: Soft. NERVOUS SYSTEM: No focal deficits. DISCHARGE ADVICE AND MEDICATIONS: 1. Diet is cardiac. 2. Activity limited until followup. 3. Follow up with a primary physician in 2 to 3 day. 4. Follow up with Neurology as recommended. Medications are: 1. Flomax 0.4 daily. 2. Multivitamins one p.o. daily. 3. Omeprazole 20 mg at bedtime. 4. Proscar 5 mg daily. 5. Vitamin B12, 1000 mcg IM 6. Ecotrin 81 mg. 7. Lipitor 10 mg daily. MMDILEEPL / OSCARN: [id number] / MTDD
[2020-06-17] MEDS ORDERED: CYANOCOBALAMIN 1,000 MCG/ML 1 ML VIAL IM SCH (09:00)
== END 2020-05-30 12:58 | disposition home or self-care (01) | DRG 69 ==
LOC: EC 12:35 → 3SCARD 16:16
PROVIDERS: ADMIT Internal Medicine; ATTEND Internal Medicine
DX: G45.9 Transient cerebral ischemic attack, unspecified (principal); J18.0 Bronchopneumonia, unspecified organism; J98.11 Atelectasis; I10 Essential (primary) hypertension; J44.9 Chronic obstructive pulmonary disease, unspecified; M19.90 Unspecified osteoarthritis, unspecified site; M47.816 Spondylosis without myelopathy or radiculopathy, lumbar region; K21.9 Gastro-esophageal reflux disease without esophagitis; R42 Dizziness and giddiness; H91.90 Unspecified hearing loss, unspecified ear; H54.7 Unspecified visual loss; I49.3 Ventricular premature depolarization; I44.0 Atrioventricular block, first degree; Z79.899 Other long term (current) drug therapy; Z87.891 Personal history of nicotine dependence; Z96.651 Presence of right artificial knee joint; Z98.42 Cataract extraction status, left eye; Z98.41 Cataract extraction status, right eye; Z98.890 Other specified postprocedural states; Z87.19 Personal history of other diseases of the digestive system; Z87.39 Personal history of other diseases of the musculoskeletal system and connective tissue; Z82.49 Family history of ischemic heart disease and other diseases of the circulatory system
CPT/HCPCS: 36415; 70450; 70496; 70498; 71046; 71250; 80048; 80053; 80061; 81003; 83036; 85025; 85610; 85730; 93005; 93306; 99285

== ENCOUNTER → 2020-07-06 | Outpatient (CLI) | payer MEDICARE, BC | END | disposition home or self-care (01) | LOC: LABWHC1 16:08 | PROVIDERS: ATTEND Psychiatry & Neurology Neurology | DX: Z09 Encounter for follow-up examination after completed treatment for conditions other than malignant neoplasm (principal); Z86.73 Personal history of transient ischemic attack (TIA), and cerebral infarction without residual deficits | CPT/HCPCS: 36415; 82607 ==

== ENCOUNTER → 2020-07-06 | Outpatient (CLI) | payer MEDICARE, BC ==
--- NOTE | 2020-07-07 05:19 | MR ---
EXAMINATION TYPE: MR brain/lspine wo con DATE OF EXAM: 07/06/2020 COMPARISON: None HISTORY: Dizziness, Low back pain Multiplanar multiecho imaging of the brain was performed without contrast. There is cerebral cortical atrophy. There is no mass effect nor midline shift. There is no sign of in tracranial hemorrhage. Diffusion images show no sign of acute infarct. On the T2 and FLAIR images the re is diffuse increased signal adjacent to the lateral ventricles. Ventricles are slightly enlarged. There is moderate mucosal thickening in the maxillary and ethmoid sinuses. The brainstem is intact. IMPRESSION: Cerebral atrophy and mild enlargement of the ventricles. White matter signal changes around the later al ventricles could relate to chronic small vessel ischemia and sequela of chronic hydrocephalus. I d o not see evidence for acute intracranial abnormality. Moderate maxillary and ethmoid sinusitis. MR scan of the lumbar spine. History back pain. Comparison none. FINDINGS: Multiplanar multiecho imaging of the lumbar spine was performed Without contrast. FINDINGS: Lumbar vertebra have normal alignment. There is mild narrowing of lumbar disc spaces. There is no com pression fracture. There is developmentally adequate spinal canal and no spinal stenosis. There is sm all posterior disc herniation at L4-5 and L5-S1 without compromise of the spinal canal. I see no bony destructive process. The sacroiliac joints are intact. There is no lumbar paraspinal mass. Lumbar ne rve roots appear normal. IMPRESSION: Mild degenerative disc changes. No lumbar spinal stenosis. No fracture. Mild posterior disc bulging a nd herniation at L4-5 and L5-S1 without impingement on the spinal canal.
== END | disposition home or self-care (01) ==
LOC: RADMRIMAIN 16:10
PROVIDERS: ATTEND Psychiatry & Neurology Neurology
DX: M51.26 Other intervertebral disc displacement, lumbar region (principal); M51.27 Other intervertebral disc displacement, lumbosacral region; M47.816 Spondylosis without myelopathy or radiculopathy, lumbar region; G31.9 Degenerative disease of nervous system, unspecified; G93.89 Other specified disorders of brain; G91.9 Hydrocephalus, unspecified; J32.0 Chronic maxillary sinusitis; J32.2 Chronic ethmoidal sinusitis; Z86.73 Personal history of transient ischemic attack (TIA), and cerebral infarction without residual deficits
CPT/HCPCS: 70551; 72148

== ENCOUNTER 2020-09-22 11:53 | Emergency (ER) | payer MEDICARE, BC ==
[2020-09-22] MEDS ORDERED: KETOROLAC 15 MG/ML 1 ML VIAL IM STA (12:34)
--- NOTE | 2020-09-22 13:40 | XR ---
Sacrum. HISTORY: Trauma. COMPARISON: None. TECHNIQUE: 3 views of the sacrum were obtained. FINDINGS: The sacrum and SI joints are intact and there is no evidence of fracture or focal intraosseous abnorm ality. IMPRESSION: No acute abnormality.
--- NOTE | 2020-09-22 13:48 | XR ---
Pelvis. HISTORY: Fall. COMPARISON: None. TECHNIQUE: AP view the pelvis is obtained. FINDINGS: The sacrum, SI joints and pubic symphysis appear normal. Pelvic ring is intact. There is no pelvic fr acture or focal intraosseous abnormality. There is no evidence of hip fracture or effusion. There is mild osteophytic change of the hips bilaterally. IMPRESSION: No evidence of acute trauma
--- NOTE | 2020-09-22 13:48 | XR ---
Lumbar spine. 5 views of the lumbar spine were obtained. HISTORY: Fall. COMPARISON: None. FINDINGS: The lumbar vertebral segments are normal in height and alignment. There is diffuse osteopenia. The disc spaces are well-maintained. There is marked facet degeneration but there is no spondylolysis . The aorta is calcified but there is no evidence of aneurysm. Visualized sacrum and SI joints are norm al. IMPRESSION: No evidence of acute injury, see above.
--- NOTE | 2020-09-22 14:17 | ED ---
General Adult HPI - General Chief complaint: Fall Stated complaint: Back Pain Time Seen by Provider: 09/22/20 12:00 Source: patient, RN notes reviewed, old records reviewed Mode of arrival: ambulatory Limitations: no limitations - History of Present Illness Initial comments: This is an 89-year-old male who presents emergency Department complaining of so me pain in his sacral region. Patient states he fell about a week ago and he was post to get x-rays done but his physician had issues getting him the prescription so the pain is gotten progressively worse over the few days so he came in this morning to be evaluated. Patient states he has no numbness or weakness. Patient states after he fell initially landed on his butt and he had no pain for a few days but about 34 days out he started having significant back pain. Patient denies any other injury at that time. Patient denies any urinary retention or urinary incontinence. - Related Data Home Medications Medication Instructions Recorded Confirmed Cyanocobalamin [Vitamin B-12 1,000 mcg IM Q30D 09/27/15 09/22/20 Injection] Finasteride [Proscar] 5 mg PO DAILY 08/01/18 09/22/20 Multivitamins, Thera [Multivitamin 1 tab PO DAILY 05/28/20 09/22/20 (formulary)] Omeprazole 20 mg PO DAILY 05/28/20 09/22/20 Tamsulosin [Flomax] 0.4 mg PO DAILY 05/28/20 09/22/20 Atorvastatin Calcium [Lipitor] 10 mg PO HS 09/22/20 09/22/20 Naproxen Sodium [Aleve] 220 mg PO Q8H PRN 09/22/20 09/22/20 Previous Rx's Medication Instructions Recorded Aspirin EC [Ecotrin Low Dose] 81 mg PO DAILY #30 tablet. 05/30/20 predniSONE [Deltasone] 40 mg PO DAILY #8 tab 09/22/20 Allergies Allergy/AdvReac Type Severity Reaction Status Date / Time No Known Allergies Allergy Verified 09/22/20 14:04 Review of Systems ROS Statement: Those systems with pertinent positive or pertinent negative responses have been documented in the HPI. ROS Other: All systems not noted in ROS Statement are negative. 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 Past Anesthesia/Blood Transfusion Reactions: Postoperative Nausea & Vomiting (PONV) Past Psychological History: No Psychological Hx Reported Smoking Status: Never smoker Past Alcohol Use History: Rare Past Drug Use History: None Reported - Past Family History Father Family Medical History: CVA/TIA Mother Additional Family Medical History / Comment(s): ASHD General Exam - General Exam Comments Initial Comments: GENERAL Patient is well-developed and well-nourished. Patient is in mild distress. EYES Patient's pupils are equal and round. Extraocular motion is intact SKIN Unremarkable NEURO The patient is alert and oriented 3 PYSCH Patient has normal interpersonal interactions. MUSCULOSKELETAL Patient has some tenderness in the SI joint bilaterally Limitations: no limitations Course Vital Signs 09/22/20 12:01 Temperature 98.2 F Pulse Rate 83 Respiratory 18 Rate Blood Pressure 157/97 O2 Sat by Pulse 98 Oximetry Medical Decision Making - Medical Decision Making Patient had x-ray of her pelvis sacrum and coccyx and there was no fractures noted. Patient did receive a Toradol shot emergency department. Patient will go home on steroids and follow-up with orthopedics. Disposition Clinical Impression: Sacroiliitis Disposition: HOME SELF-CARE Condition: Good Instructions (If sedation given, give patient instructions): Fall Prevention for Older Adults (ED), Sacroiliitis (ED) Prescriptions: predniSONE [Deltasone] 40 mg PO DAILY #8 tab Is patient prescribed a controlled substance at d/c from ED?: No Referrals: Rocco Rose MD [Primary Care Provider] - 1-2 days Time of Disposition: 14:16
[2020-09-22 14:36] VITALS: BP 147/78; PULSE 78; RESP 16; TEMP 98.4
== END 2020-09-22 14:33 | disposition home or self-care (01) ==
LOC: EC 11:53
DX: M46.1 Sacroiliitis, not elsewhere classified (principal); K21.9 Gastro-esophageal reflux disease without esophagitis; M19.90 Unspecified osteoarthritis, unspecified site; Z79.899 Other long term (current) drug therapy; Z96.651 Presence of right artificial knee joint
CPT/HCPCS: 72110; 72170; 72220; 99284; 96372; J1885

== ENCOUNTER 2020-10-06 09:54 | Emergency (ER) | payer MEDICARE, BC ==
[2020-10-06 10:03] VITALS: RESP 16; TEMP 98.2
--- NOTE | 2020-10-06 10:26 | ED ---
Back Pain HPI - General Chief Complaint: Back Pain/Injury Stated Complaint: back pain Time Seen by Provider: 10/06/20 10:04 Source: EMS Limitations: no limitations - History of Present Illness Initial Comments: Patient is an 89-year-old male presenting to emergency Department with complaints of right lower back pain started when he was standing at the counter this morning. He states the pain shot down to the back of his right leg. He has been dealing with intermittent back pain for about a month after he fell onto his tailbone. Patient has had recent x-rays reveal no acute fractures dislocations. He has followed up with orthopedics and is seeing a back specialist as well. He has been trying ice on the area which does help at times. He denies any other falls or traumas. He denies any numbness and tingling to his extremities, no bowel or bladder incontinence, no saddle paresthesia. Denies any fever or chills. He has no further complaints. - Related Data Home Medications Medication Instructions Recorded Confirmed Cyanocobalamin [Vitamin B-12 1,000 mcg IM Q30D 09/27/15 09/22/20 Injection] Finasteride [Proscar] 5 mg PO DAILY 08/01/18 09/22/20 Multivitamins, Thera [Multivitamin 1 tab PO DAILY 05/28/20 09/22/20 (formulary)] Omeprazole 20 mg PO DAILY 05/28/20 09/22/20 Tamsulosin [Flomax] 0.4 mg PO DAILY 05/28/20 09/22/20 Atorvastatin Calcium [Lipitor] 10 mg PO HS 09/22/20 09/22/20 Naproxen Sodium [Aleve] 220 mg PO Q8H PRN 09/22/20 09/22/20 Previous Rx's Medication Instructions Recorded Aspirin EC [Ecotrin Low Dose] 81 mg PO DAILY #30 tablet. 05/30/20 predniSONE [Deltasone] 40 mg PO DAILY #8 tab 09/22/20 Ketorolac [Toradol] 10 mg PO Q8HR #10 tab 10/06/20 Allergies Allergy/AdvReac Type Severity Reaction Status Date / Time No Known Allergies Allergy Verified 09/22/20 14:04 Review of Systems ROS Statement: Those systems with pertinent positive or pertinent negative responses have been documented in the HPI. ROS Other: All systems not noted in ROS Statement are negative. 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 Past Anesthesia/Blood Transfusion Reactions: Postoperative Nausea & Vomiting (PONV) Past Psychological History: No Psychological Hx Reported Smoking Status: Never smoker Past Alcohol Use History: None Reported Past Drug Use History: None Reported - Past Family History Father Family Medical History: CVA/TIA Mother Additional Family Medical History / Comment(s): ASHD General Exam - General Exam Comments Initial Comments: GENERAL: Patient is well-developed and well-nourished. Patient is nontoxic and in no acute distress. HEAD: Atraumatic, normocephalic. EYES: Pupils equal round and reactive to light, extraocular movements intact, sclera anicteric, conjunctiva are normal. Eyelids were unremarkable. ENT: TMs normal, nares patent, oropharynx clear without exudates. Moist mucous membranes. NECK: Normal range of motion, supple without lymphadenopathy or JVD. LUNGS: Unlabored respirations. Breath sounds clear to auscultation bilaterally and equal. No wheezes rales or rhonchi. HEART: Regular rate and rhythm without murmurs, rubs or gallops. ABDOMEN: Soft, nontender, normoactive bowel sounds. No guarding, no rebound. No masses appreciated. : Deferred MUSCULOSKELETAL: Normal extremities with adequate strength and normal range of motion, no pitting or edema. No clubbing or cyanosis. Mild pain with palpation the right sciatic area, no lumbar midline pain. Patient has full trunk/LE range of motion. NEUROLOGICAL: Patient is alert and oriented x 3. Motor and sensory are also intact. Cranial nerves II through XII grossly intact. Symmetrical smile. Normal speech, normal gait. PSYCH: Normal mood, normal affect. SKIN: Warm, Dry, normal turgor, no rashes or lesions noted. Limitations: no limitations Course Vital Signs 10/06/20 09:57 Temperature 98.2 F Pulse Rate 73 Respiratory 16 Rate Blood Pressure 169/109 O2 Sat by Pulse 98 Oximetry Medical Decision Making - Medical Decision Making Patient is a 89-year-old male here for a right sided low back pain that started today. He has been dealing with this pain intermittently for the past month after he had a fall on his tailbone. Recent imaging showed no acute fractures. He is following up with orthopedics and back specialist this. He has an appointment for an injection in 2 weeks. He did receive 15 mg of Toradol EMS prior to arrival. He states that did help significantly, his current pain is a 2/10. I discussed with patient using a round of steroids, he declines this. I will give him a few tablets of Toradol to go home with. He can follow up with his back specialist. Patient is stable for discharge. Patient is in agreement with this plan of care. Return parameters were discussed with the patient and they verbalized understanding. Case discussed with Dr. guillen. Disposition Clinical Impression: Right-sided low back pain with sciatica Disposition: HOME SELF-CARE Condition: Stable Instructions (If sedation given, give patient instructions): Acute Low Back Pain (ED) Additional Instructions: Please return to the Emergency Department if symptoms worsen or any other concerns. Recommend heat and/or ice to the area as discussed. May take Toradol for severe symptoms. Do not take any other anti-inflammatories with this medication. Follow up with your back specialist. Prescriptions: Ketorolac [Toradol] 10 mg PO Q8HR #10 tab Is patient prescribed a controlled substance at d/c from ED?: No Referrals: Rocco Rose MD [Primary Care Provider] - 1-2 days
[2020-10-06 11:33] VITALS: BP 144/90; PULSE 74
== END 2020-10-06 11:50 | disposition home or self-care (01) ==
LOC: EC 09:54
DX: M54.41 Lumbago with sciatica, right side (principal); K21.9 Gastro-esophageal reflux disease without esophagitis; M19.90 Unspecified osteoarthritis, unspecified site; Z79.899 Other long term (current) drug therapy; Z96.651 Presence of right artificial knee joint; W18.30XA Fall on same level, unspecified, initial encounter
CPT/HCPCS: 99283

== ENCOUNTER → 2021-05-13 | Outpatient (CLI) | payer MEDICARE, BC ==
--- NOTE | 2021-05-13 15:45 | US ---
EXAMINATION TYPE: US venous doppler duplex LE DATE OF EXAM: 05/13/2021 1:29 PM COMPARISON: NONE CLINICAL HISTORY: M79.89 LEG SWELLING. Swelling. No hx of DVT. SIDE PERFORMED: Bilateral TECHNIQUE: The lower extremity deep venous system is examined utilizing real time linear array sonog cesilia with graded compression, doppler sonography and color-flow sonography. VESSELS IMAGED: Common Femoral Vein Deep Femoral Vein Greater Saphenous Vein * Femoral Vein Popliteal Vein Small Saphenous Vein * Proximal Calf Veins (* superficial vessels) Right Leg: No evidence of DVT in veins imaged at this time. Hypoechoic area with hyperechoic center seen within the right groin: 1.8 x 2.2 x 0.7 cm. Left Leg: No evidence of DVT in veins imaged at this time. IMPRESSION: 1. Bilateral lower extremity ultrasound negative for deep venous thrombosis. 2. Right inguinal lymph node appears prominent.
== END | disposition home or self-care (01) ==
LOC: RADUSWWP 13:01
PROVIDERS: ATTEND Internal Medicine
DX: M79.89 Other specified soft tissue disorders (principal)
CPT/HCPCS: 93970

== ENCOUNTER → 2021-08-15 | Outpatient (CLI) | payer MEDICARE, BC ==
--- NOTE | 2021-08-15 13:27 | US ---
EXAMINATION TYPE: US groin RT, US groin LT DATE OF EXAM: 08/15/2021 COMPARISON: NONE CLINICAL HISTORY: R59.0 Enlarged Lymph nodes. inguinal lymph nodes lymph nodes right groin with largest = 2.7 x 0.8 x 2.2cm. lymph node left groin = 2.5 x 0.7 x 1.2cm IMPRESSION: As above MTDD
--- NOTE | 2021-08-16 10:00 | ECHOF ---
Referral Reason:R06.02 SOB on exertion MEASUREMENTS -------- HEIGHT: 177.8 cm WEIGHT: 76.2 kg BP: RVIDd: 2.9 cm (< 3.3) IVSd: 1.4 cm (0.6 - 1.1) LVIDd: 2.4 cm (3.9 - 5.3) LVPWd: 1.4 cm (0.6 - 1.1) IVSs: 1.7 cm LVIDs: 1.8 cm LVPWs: 1.3 cm LAESV Index (A-L): 18.99 ml/m Ao Diam: 3.6 cm (2.0 - 3.7) AV Cusp: 2.1 cm (1.5 - 2.6) LA Diam: 3.0 cm (2.7 - 3.8) MV EXCURSION: 14.273 mm (> 18.000) MV EF SLOPE: 61 mm/s (70 - 150) EPSS: 0.9 cm MV E Francisco: 0.46 m/s MV DecT: 253 ms MV A Francisco: 0.81 m/s MV E/A Ratio: 0.56 RAP: 5.00 mmHg RVSP: 33.10 mmHg FINDINGS -------- Sinus rhythm. This was a technically adequate study. The left ventricular size is normal. There is moderate concentric left ventricular hypertrophy. O verall left ventricular systolic function is normal with, an EF between 55 - 60 %. The right ventricle is normal in size. Normal LA size by volume 22+/-6 ml/m2. The right atrial size is normal. Interatrial and interventricular septum intact. The aortic valve is trileaflet and appears structurally normal. 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 There is no evidence of aortic regurgitation. There is no evidence of aortic stenosis. There is trace mitral regurgitation. Mild tricuspid regurgitation present. There is borderline pulmonary hypertension. The right ventr icular systolic pressure, as measured by Doppler, is 33.10mmHg. Trace/mild (physiologic) pulmonic regurgitation. The aortic root size is normal. IVC Not well visulized. Echo free space indicative of a pericardial fat pad. There is no pericardial effusion. CONCLUSIONS -------- 1. The left ventricular size is normal. 2. There is moderate concentric left ventricular hypertrophy. 3. Overall left ventricular systolic function is normal with, an EF between 55 - 60 %. 4. There is mild aortic valve sclerosis. 5. There is trace mitral regurgitation. 6. Mild tricuspid regurgitation present. 7. There is borderline pulmonary hypertension. 8. The right ventricular systolic pressure, as measured by Doppler, is 33.10mmHg. 9. Trace/mild (physiologic) pulmonic regurgitation. FLIGHT FOLLOWER: Deirdre Bloom RDCS
== END | disposition home or self-care (01) ==
LOC: RADUSWWP 12:18
PROVIDERS: ATTEND Internal Medicine
DX: R59.0 Localized enlarged lymph nodes (principal); I08.8 Other rheumatic multiple valve diseases
CPT/HCPCS: 93306

== ENCOUNTER 2021-10-10 16:03 | Inpatient (IN) | payer BC, MEDICARE ==
[2021-10-10] MEDS ORDERED: SODIUM CHLORIDE 0.9% 1,000 ML IV STA (16:49)
[2021-10-10] MEDS ORDERED: TOPICAL SKIN ADHESIVE 1 EACH AMP TOPICAL ONE (16:52)
--- NOTE | 2021-10-10 16:57 | ED ---
General Adult HPI - General Chief complaint: Fall Stated complaint: Fall Time Seen by Provider: 10/10/21 16:38 Source: patient, EMS, RN notes reviewed Mode of arrival: EMS Limitations: no limitations - History of Present Illness Initial comments: Patient is a pleasant 89-year-old male presenting to the emergency department following 2 falls today. First one occurred in the garage and patient does not recall this. Patient is unclear if he passed out. Patient woke up on the ground. Patient had a second fall stating he lost his balance while shutting his trunk in the parking lot. Patient reportedly was lying on the ground for approximately half an hour before bystander noticed him. Patient does complain of left arm discomfort. EMS reported concern for dislocation of the left humerus and did report field reduction. The was question if patient may have lost his pulse and extremity did appear discolored previously, bluish. Patient does not recall this. Patient denies any head or neck discomfort. Tennis immunization was just a month ago last. No back or abdominal pain. No chest pain or isolated area of weakness. - Related Data Home Medications Medication Instructions Recorded Confirmed Cyanocobalamin [Vitamin B-12 1,000 mcg SQ Q30D 09/27/15 10/10/21 Injection] Finasteride [Proscar] 5 mg PO DAILY 08/01/18 10/10/21 Multivitamins, Thera [Multivitamin 1 tab PO HS 05/28/20 10/10/21 (formulary)] Omeprazole 20 mg PO HS 05/28/20 10/10/21 Tamsulosin [Flomax] 0.4 mg PO PC-SUPPER 05/28/20 10/10/21 Atorvastatin Calcium [Lipitor] 10 mg PO PC-SUPPER 09/22/20 10/10/21 Aspirin EC [Ecotrin Low Dose] 162 mg PO DAILY 10/10/21 10/10/21 Prevagen 1 cap PO HS 10/10/21 10/10/21 Umeclidinium Brm/Vilanterol Tr 1 puff INHALATION RT-HS 10/10/21 10/10/21 [Anoro Ellipta 62.5-25 Mcg INH] Allergies Allergy/AdvReac Type Severity Reaction Status Date / Time No Known Allergies Allergy Verified 10/10/21 18:43 Review of Systems ROS Statement: Those systems with pertinent positive or pertinent negative responses have been documented in the HPI. ROS Other: All systems not noted in ROS Statement are negative. Constitutional: Denies: fever Eyes: Denies: eye pain ENT: Denies: ear pain Respiratory: Denies: cough Cardiovascular: Denies: chest pain Endocrine: Denies: fatigue Gastrointestinal: Denies: abdominal pain Genitourinary: Denies: dysuria Musculoskeletal: Reports: as per HPI. Denies: back pain Skin: Denies: rash Neurological: Reports: as per HPI. 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 Past Anesthesia/Blood Transfusion Reactions: Postoperative Nausea & Vomiting (PONV) Past Psychological History: No Psychological Hx Reported Smoking Status: Former smoker Past Alcohol Use History: None Reported Past Drug Use History: None Reported - Past Family History Father Family Medical History: CVA/TIA Mother Additional Family Medical History / Comment(s): ASHD General Exam Limitations: no limitations General appearance: alert, in no apparent distress Head exam: Present: normocephalic Eye exam: Present: normal appearance, PERRL, EOMI ENT exam: Present: normal oropharynx Neck exam: Present: normal inspection. Absent: tenderness Respiratory exam: Present: normal lung sounds bilaterally. Absent: chest wall tenderness Cardiovascular Exam: Present: regular rate, normal rhythm Expanded Peripheral pulses: 2+: Radial (L) GI/Abdominal exam: Present: soft. Absent: distended, tenderness Extremities exam: Present: tenderness (Left anterior shoulder fullness. Tenderness in this region as well as left proximal humerus. Distally the extremity is neurovascular intact. Good color. Good sensation. Good pulse. Good strength.) Back exam: Present: normal inspection Neurological exam: Present: alert. Absent: motor sensory deficit Psychiatric exam: Present: normal affect, normal mood Skin exam: Present: normal color. Absent: rash, cyanosis Course Vital Signs 10/10/21 10/10/21 10/10/21 16:04 18:48 19:38 Temperature 98.2 F Pulse Rate 89 99 100 Respiratory 16 18 18 Rate Blood Pressure 179/135 154/107 137/95 O2 Sat by Pulse 95 96 96 Oximetry - Reevaluation(s) Reevaluation #1: 10/10/21 18:26 Patient will need to be admitted for syncope. Dr. Gordon has been paged. The pain is also regarding arm trauma. CT ordered. 10/10/21 18:49 Case was also discussed with Dr. Gordon, who will admit EKG Findings - EKG Comments: EKG Findings:: Sinus rhythm with rate of 94. TN 225. QRS 100. QT 341. QTC 393. Normal axis. Normal QRS. No acute ST change. Medical Decision Making - Medical Decision Making Patient reevaluated and updated. Case discussed with Dr. Gordon, who will admit. Case also discussed with Dr. Montes De Oca who did evaluate patient. [facility] physician group has been placed on consult. - Lab Data Result diagrams: 10/10/21 17:31 10/10/21 17:31 Lab Results 10/10/21 10/10/21 10/10/21 Range/Units 17:31 17:31 17:31 WBC 11.2 H (3.8-10.6) k/uL RBC 4.64 (4.30-5.90) m/uL Hgb 14.8 (13.0-17.5) gm/dL Hct 45.4 (39.0-53.0) % MCV 97.9 (80.0-100.0) fL MCH 31.9 (25.0-35.0) pg MCHC 32.6 (31.0-37.0) g/dL RDW 12.1 (11.5-15.5) % Plt Count 254 (150-450) k/uL MPV 7.0 Neutrophils % 76 % Lymphocytes % 14 % Monocytes % 8 % Eosinophils % 1 % Basophils % 0 % Neutrophils # 8.5 H (1.3-7.7) k/uL Lymphocytes # 1.6 (1.0-4.8) k/uL Monocytes # 0.9 (0-1.0) k/uL Eosinophils # 0.2 (0-0.7) k/uL Basophils # 0.0 (0-0.2) k/uL PT 10.4 (9.0-12.0) sec INR 0.9 (<1.2) APTT 21.8 L (22.0-30.0) sec Sodium (137-145) mmol/L Potassium (3.5-5.1) mmol/L Chloride (98-107) mmol/L Carbon Dioxide (22-30) mmol/L Anion Gap mmol/L BUN (9-20) mg/dL Creatinine (0.66-1.25) mg/dL Est GFR (CKD-EPI)AfAm (>60 ml/min/1.73 sqM) Est GFR (CKD-EPI)NonAf (>60 ml/min/1.73 sqM) Glucose (74-99) mg/dL Calcium (8.4-10.2) mg/dL Magnesium (1.6-2.3) mg/dL Total Bilirubin (0.2-1.3) mg/dL AST (17-59) U/L ALT (4-49) U/L Alkaline Phosphatase (38-126) U/L Troponin I (0.000-0.034) ng/mL Total Protein (6.3-8.2) g/dL Albumin (3.5-5.0) g/dL Urine Color Light Yellow Urine Appearance Clear (Clear) Urine pH 7.0 (5.0-8.0) Ur Specific [place] 1.012 (1.001-1.035) Urine Protein Negative (Negative) Urine Glucose (UA) Negative (Negative) Urine Ketones Negative (Negative) Urine Blood Negative (Negative) Urine Nitrite Negative (Negative) Urine Bilirubin Negative (Negative) Urine Urobilinogen <2.0 (<2.0) mg/dL Ur Leukocyte Esterase Negative (Negative) 10/10/21 10/10/21 Range/Units 17:31 17:31 WBC (3.8-10.6) k/uL RBC (4.30-5.90) m/uL Hgb (13.0-17.5) gm/dL Hct (39.0-53.0) % MCV (80.0-100.0) fL MCH (25.0-35.0) pg MCHC (31.0-37.0) g/dL RDW (11.5-15.5) % Plt Count (150-450) k/uL MPV Neutrophils % % Lymphocytes % % Monocytes % % Eosinophils % % Basophils % % Neutrophils # (1.3-7.7) k/uL Lymphocytes # (1.0-4.8) k/uL Monocytes # (0-1.0) k/uL Eosinophils # (0-0.7) k/uL Basophils # (0-0.2) k/uL PT (9.0-12.0) sec INR (<1.2) APTT (22.0-30.0) sec Sodium 136 L (137-145) mmol/L Potassium 4.6 (3.5-5.1) mmol/L Chloride 102 (98-107) mmol/L Carbon Dioxide 27 (22-30) mmol/L Anion Gap 7 mmol/L BUN 15 (9-20) mg/dL Creatinine 0.53 L (0.66-1.25) mg/dL Est GFR (CKD-EPI)AfAm >90 (>60 ml/min/1.73 sqM) Est GFR (CKD-EPI)NonAf >90 (>60 ml/min/1.73 sqM) Glucose 114 H (74-99) mg/dL Calcium 9.5 (8.4-10.2) mg/dL Magnesium 1.9 (1.6-2.3) mg/dL Total Bilirubin 1.1 (0.2-1.3) mg/dL AST 35 (17-59) U/L ALT 25 (4-49) U/L Alkaline Phosphatase 76 (38-126) U/L Troponin I 0.019 (0.000-0.034) ng/mL Total Protein 7.3 (6.3-8.2) g/dL Albumin 4.2 (3.5-5.0) g/dL Urine Color Urine Appearance (Clear) Urine pH (5.0-8.0) Ur Specific [place] (1.001-1.035) Urine Protein (Negative) Urine Glucose (UA) (Negative) Urine Ketones (Negative) Urine Blood (Negative) Urine Nitrite (Negative) Urine Bilirubin (Negative) Urine Urobilinogen (<2.0) mg/dL Ur Leukocyte Esterase (Negative) - Radiology Data Radiology results: report reviewed (CT brain and C-spine show no acute process. CT angios left arm shows vascular is intact.), image reviewed (Left humerus x- ray shows proximal humeral fracture. Post chest x-ray shows no acute process.) Disposition Clinical Impression: Syncope, Fall, Proximal humerus fracture Disposition: ADMITTED IP TO THIS HOSP Is patient prescribed a controlled substance at d/c from ED?: No Referrals: Rocco Rose MD [Primary Care Provider] - 1-2 days Decision Time: 18:29
[2021-10-10 17:50] LABS: Basophils % (A) 0 %; Eosinophils # (A) 0.2 k/uL (0-0.7); Eosinophils % (A) 1 %; HCT 45.4 % (39.0-53.0); HGB 14.8 gm/dL (13.0-17.5); Lymphocytes # (A) 1.6 k/uL (1.0-4.8); Lymphocytes % (A) 14 %; MCH 31.9 pg (25.0-35.0); MCHC 32.6 g/dL (31.0-37.0); MCV 97.9 fL (80.0-100.0); Monocytes # (A) 0.9 k/uL (0-1.0); Monocytes % (A) 8 %; Neutrophils # (A) 8.5 k/uL (1.3-7.7); Neutrophils % (A) 76 %; Platelet Count 254 k/uL (150-450); RBC 4.64 m/uL (4.30-5.90); RDW 12.1 % (11.5-15.5); WBC 11.2 k/uL (3.8-10.6)
--- NOTE | 2021-10-10 17:53 | CT ---
EXAMINATION TYPE: CT brain cspine wo con DATE OF EXAM: 10/10/2021 COMPARISON: 05/28/2020 HISTORY: Pain after Fall CT DLP: 1596.3 mGycm Automated exposure control for dose reduction was used. TECHNIQUE: CT scan of the head and cervical spine are performed without contrast. FINDINGS: There is no acute intracranial hemorrhage, mass effect, or midline shift identified. The v entricles and sulci are within normal limits in size. The globes are intact and the visualized sinus es are clear. Cervical spine is visualized in its entirety from C1 through upper thoracic levels and demonstrates s atisfactory alignment without evidence of acute fracture or dislocation. Prevertebral soft tissue ap pears within normal limits. Prominent multifocal cervical spondylosis changes are noted. The C1-C2 ar ticulation is unremarkable. IMPRESSION: 1. There is no acute fracture or dislocation evident in the cervical spine. 2. No acute intracranial hemorrhage, mass effect, or midline shift is seen.
[2021-10-10 17:57] LABS: INR 0.9 (<1.2); Prothrombin Time 10.4 sec (9.0-12.0)
[2021-10-10 17:59] LABS: Partial Thromboplastin Time 21.8 sec (22.0-30.0)
[2021-10-10 18:01] LABS: ALT 25 U/L (4-49); AST 35 U/L (17-59); African American GFR (CKD) >90 (>60 ml/min/1.73 sqM); Albumin 4.2 g/dL (3.5-5.0); Alkaline Phosphatase 76 U/L (38-126); Anion Gap 7 mmol/L; Blood Urea Nitrogen 15 mg/dL (9-20); Calcium 9.5 mg/dL (8.4-10.2); Carbon Dioxide 27 mmol/L (22-30); Chloride 102 mmol/L (98-107); Glucose 114 mg/dL (74-99); Magnesium 1.9 mg/dL (1.6-2.3); Non-African American GFR(CKD) >90 (>60 ml/min/1.73 sqM); Potassium 4.6 mmol/L (3.5-5.1); Sodium 136 mmol/L (137-145); Total Bilirubin 1.1 mg/dL (0.2-1.3); Total Protein 7.3 g/dL (6.3-8.2)
[2021-10-10 18:12] LABS: Appearance,Urine Clear (Clear); Bilirubin,Urine Negative (Negative); Blood,Urine Negative (Negative); Color,Urine Light Yellow; Glucose,Urine (UA) Negative (Negative); Ketones,Urine Negative (Negative); Leukocyte Esterase,Urine Negative (Negative); Nitrite,Urine Negative (Negative); Protein,Urine Negative (Negative); Specific Gravity,Urine 1.012 (1.001-1.035); Urobilinogen,Urine <2.0 mg/dL (<2.0)
--- NOTE | 2021-10-10 18:55 | XR ---
EXAMINATION: XR chest 1V portable DATE AND TIME: 10/10/2021 5:30 PM CLINICAL INDICATION: Pain; fall TECHNIQUE: 2 AP views COMPARISON: 05/28/2020 FINDINGS: There is a one-half shaft width medial-displaced surgical neck fracture of the left humerus. No other fractures. The lungs are predominantly clear. The pleural spaces are negative. The cardiac silhouette is not enlarged. The soft tissues are negative for acute findings. IMPRESSION: Left proximal humerus displaced fracture.
[2021-10-10] MEDS ORDERED: MORPHINE SULFATE 2 MG/ML SYRINGE IVP STA (18:59)
--- NOTE | 2021-10-10 18:59 | XR ---
PROCEDURE: XR humerus LT - 3V DATE AND TIME: 10/10/2021 5:30 PM CLINICAL INDICATION: Pain; fall TECHNIQUE: Department protocol COMPARISON: None FINDINGS: There is a transverse fracture of the proximal left humerus which is mildly comminuted and appears apex-anterior and one shaft width anterior displacement and one half shaft medial displacemen t. No other fracture or malalignment. The soft tissues are unremarkable. IMPRESSION: Proximal humerus fracture.
--- NOTE | 2021-10-10 19:00 | XR ---
PROCEDURE: XR pelvis AP view - 1V DATE AND TIME: 10/10/2021 5:30 PM CLINICAL INDICATION: Pain; fall TECHNIQUE: Department protocol COMPARISON: 09/22/2020 FINDINGS: There is no fracture or malalignment. The soft tissues are unremarkable. IMPRESSION: NO ACUTE PROCESS.
--- NOTE | 2021-10-10 19:48 | CT ---
EXAMINATION TYPE: CT angio upper extremity LT with contrast and with 3-D reconstruction renderings DATE OF EXAM: 10/10/2021 COMPARISON: Same day Radiographs HISTORY: Fall, left arm pain. CT DLP: 752.7 mGycm Automated exposure control for dose reduction was used. CONTRAST: Performed with IV Contrast, patient injected with 100ml mL of Isovue 370. FINDINGS: The previously seen angulated/displaced, and mildly comminuted, proximal left humerus fract ure is redemonstrated on both 2-D and 3-D reconstruction sequences. The humeral head is intact and th e humeral head and bony glenoid are congruent. There are no additional fractures. The vasculature is intact. IMPRESSION: PROXIMAL LEFT HUMERUS FRACTURE.
[2021-10-10] MEDS ORDERED: NALOXONE 0.4 MG/ML 1 ML VIAL IV PRN (19:53)
--- NOTE | 2021-10-10 20:05 | ED ---
Medical Decision Making - Lab Data Result diagrams: 10/10/21 17:31 10/10/21 17:31 Lab Results 10/10/21 10/10/21 10/10/21 Range/Units 17:31 17:31 17:31 WBC 11.2 H (3.8-10.6) k/uL RBC 4.64 (4.30-5.90) m/uL Hgb 14.8 (13.0-17.5) gm/dL Hct 45.4 (39.0-53.0) % MCV 97.9 (80.0-100.0) fL MCH 31.9 (25.0-35.0) pg MCHC 32.6 (31.0-37.0) g/dL RDW 12.1 (11.5-15.5) % Plt Count 254 (150-450) k/uL MPV 7.0 Neutrophils % 76 % Lymphocytes % 14 % Monocytes % 8 % Eosinophils % 1 % Basophils % 0 % Neutrophils # 8.5 H (1.3-7.7) k/uL Lymphocytes # 1.6 (1.0-4.8) k/uL Monocytes # 0.9 (0-1.0) k/uL Eosinophils # 0.2 (0-0.7) k/uL Basophils # 0.0 (0-0.2) k/uL PT 10.4 (9.0-12.0) sec INR 0.9 (<1.2) APTT 21.8 L (22.0-30.0) sec Sodium (137-145) mmol/L Potassium (3.5-5.1) mmol/L Chloride (98-107) mmol/L Carbon Dioxide (22-30) mmol/L Anion Gap mmol/L BUN (9-20) mg/dL Creatinine (0.66-1.25) mg/dL Est GFR (CKD-EPI)AfAm (>60 ml/min/1.73 sqM) Est GFR (CKD-EPI)NonAf (>60 ml/min/1.73 sqM) Glucose (74-99) mg/dL Calcium (8.4-10.2) mg/dL Magnesium (1.6-2.3) mg/dL Total Bilirubin (0.2-1.3) mg/dL AST (17-59) U/L ALT (4-49) U/L Alkaline Phosphatase (38-126) U/L Troponin I (0.000-0.034) ng/mL Total Protein (6.3-8.2) g/dL Albumin (3.5-5.0) g/dL Urine Color Light Yellow Urine Appearance Clear (Clear) Urine pH 7.0 (5.0-8.0) Ur Specific [place] 1.012 (1.001-1.035) Urine Protein Negative (Negative) Urine Glucose (UA) Negative (Negative) Urine Ketones Negative (Negative) Urine Blood Negative (Negative) Urine Nitrite Negative (Negative) Urine Bilirubin Negative (Negative) Urine Urobilinogen <2.0 (<2.0) mg/dL Ur Leukocyte Esterase Negative (Negative) Coronavirus (PCR) (Not Detectd) 10/10/21 10/10/21 10/10/21 Range/Units 17:31 17:31 19:38 WBC (3.8-10.6) k/uL RBC (4.30-5.90) m/uL Hgb (13.0-17.5) gm/dL Hct (39.0-53.0) % MCV (80.0-100.0) fL MCH (25.0-35.0) pg MCHC (31.0-37.0) g/dL RDW (11.5-15.5) % Plt Count (150-450) k/uL MPV Neutrophils % % Lymphocytes % % Monocytes % % Eosinophils % % Basophils % % Neutrophils # (1.3-7.7) k/uL Lymphocytes # (1.0-4.8) k/uL Monocytes # (0-1.0) k/uL Eosinophils # (0-0.7) k/uL Basophils # (0-0.2) k/uL PT (9.0-12.0) sec INR (<1.2) APTT (22.0-30.0) sec Sodium 136 L (137-145) mmol/L Potassium 4.6 (3.5-5.1) mmol/L Chloride 102 (98-107) mmol/L Carbon Dioxide 27 (22-30) mmol/L Anion Gap 7 mmol/L BUN 15 (9-20) mg/dL Creatinine 0.53 L (0.66-1.25) mg/dL Est GFR (CKD-EPI)AfAm >90 (>60 ml/min/1.73 sqM) Est GFR (CKD-EPI)NonAf >90 (>60 ml/min/1.73 sqM) Glucose 114 H (74-99) mg/dL Calcium 9.5 (8.4-10.2) mg/dL Magnesium 1.9 (1.6-2.3) mg/dL Total Bilirubin 1.1 (0.2-1.3) mg/dL AST 35 (17-59) U/L ALT 25 (4-49) U/L Alkaline Phosphatase 76 (38-126) U/L Troponin I 0.019 (0.000-0.034) ng/mL Total Protein 7.3 (6.3-8.2) g/dL Albumin 4.2 (3.5-5.0) g/dL Urine Color Urine Appearance (Clear) Urine pH (5.0-8.0) Ur Specific [place] (1.001-1.035) Urine Protein (Negative) Urine Glucose (UA) (Negative) Urine Ketones (Negative) Urine Blood (Negative) Urine Nitrite (Negative) Urine Bilirubin (Negative) Urine Urobilinogen (<2.0) mg/dL Ur Leukocyte Esterase (Negative) Coronavirus (PCR) Not Detected (Not Detectd) Disposition Clinical Impression: Syncope, Fall, Proximal humerus fracture Disposition: ADMITTED IP TO THIS HOSP Is patient prescribed a controlled substance at d/c from ED?: No Referrals: Rocco Rose MD [Primary Care Provider] - 1-2 days Procedures - Laceration Laceration #1 Consent Obtained: verbal consent Indication: laceration Site: face (Right eyebrow) Size (cm): 2 Description: linear Depth: simple, single layer Pre-repair: wound explored, irrigated extensively Type of Sutures: other (Closed with Dermabond) Patient Tolerated Procedure: well, no complications
[2021-10-11] MEDS ORDERED: MORPHINE SULFATE 2 MG/ML SYRINGE IVP PRN (03:16)
--- NOTE | 2021-10-11 03:49 | P.CONS ---
History of Present Illness - Reason for Consult Consult date: 10/10/21 medical management Requesting physician: Jimmie Urban - Chief Complaint fall, left shoulder pain - History of Present Illness 89 year old male with BPH patient comes in after losing his balance while in a parking lot trying to close his trunk, he fell to the ground no loss of consciousness and was unable to stand up , until a bystander helped him and notified EMS. EMS noticed left shoulder discoloration. patient dose not recall if that was from earlier as he sustained an earlier fall (per ED note he fell in his garage and passed out , then woke up on the ground ) however, patient told me he was sitting drinking his coffee when he suddenly woke up found his face laying against the table , with his glasses soaked with blood. and later noted he had a bruise around his right eye patient denies otherwise any history of falls, palpitations, or any cardiac history . he denies any chest pain or trouble breathing, he claims that he feels fine , except for pain in his left shoulder due to the fracture that was confirmed by imaging in the ED patient lives alone, and uses a walker when needed. patient is not on blood thinners patient lives alone, independent in his ADL. uses a walker occasionally Review of Systems Pertinent positives as noted in HPI. 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 Past Anesthesia/Blood Transfusion Reactions: Postoperative Nausea & Vomiting (PONV) Past Psychological History: No Psychological Hx Reported Smoking Status: Former smoker Past Alcohol Use History: None Reported Past Drug Use History: None Reported - Past Family History Father Family Medical History: CVA/TIA Mother Additional Family Medical History / Comment(s): ASHD Medications and Allergies Home Medications Medication Instructions Recorded Confirmed Type Cyanocobalamin [Vitamin B-12 1,000 mcg SQ Q30D 09/27/15 10/10/21 History Injection] Finasteride [Proscar] 5 mg PO DAILY 08/01/18 10/10/21 History Multivitamins, Thera [Multivitamin 1 tab PO HS 05/28/20 10/10/21 History (formulary)] Omeprazole 20 mg PO HS 05/28/20 10/10/21 History Tamsulosin [Flomax] 0.4 mg PO PC-SUPPER 05/28/20 10/10/21 History Atorvastatin Calcium [Lipitor] 10 mg PO PC-SUPPER 09/22/20 10/10/21 History Aspirin EC [Ecotrin Low Dose] 162 mg PO DAILY 10/10/21 10/10/21 History Prevagen 1 cap PO HS 10/10/21 10/10/21 History Umeclidinium Brm/Vilanterol Tr 1 puff INHALATION RT-HS 10/10/21 10/10/21 History [Anoro Ellipta 62.5-25 Mcg INH] Allergies Allergy/AdvReac Type Severity Reaction Status Date / Time No Known Allergies Allergy Verified 10/10/21 18:43 Physical Exam Vitals: Vital Signs Temp Pulse Resp BP Pulse Ox 10/11/21 03:25 94 16 124/87 95 10/10/21 21:39 85 18 133/98 96 10/10/21 19:38 100 18 137/95 96 10/10/21 18:48 99 18 154/107 96 10/10/21 16:04 98.2 F 89 16 179/135 95 Intake and Output 10/10/21 10/10/21 10/11/21 14:59 22:59 06:59 Other: Weight 72.575 kg Constitutional: No acute distress, conversant, pleasant Eyes: Anicteric sclerae, moist conjunctiva, Pupils equal round reactive to light ENMT: NC/bruising and echymosis around right eye, with stiches in his eyebrows Oropharynx clear, no erythema, or exudates Neck: Supple, , no masses, or JVD No carotid bruits No thyromegaly Lungs: Clear to auscultation Clear to percussion Normal respiratory effort, no accessory muscle use Cardiovascular: Heart regular in rate and rhythm, No murmurs, gallops, or rubs No peripheral edema Abdominal: Soft Nontender, no guarding, rebound or rigidity Abdomen moving with respiration Normoactive bowel sounds No hepatomegaly, No splenomegaly No palpable mass No abdominal wall hernia noted Skin: swelling and bruising over left shoulder, otherwise , Normal temperature, tone, texture, turgor Extremities: No digital cyanosis No clubbing Pedal pulses intact and symmetrical Radial pulses intact and symmetrical , capillary refill immediate No calf tenderness Psychiatric: Alert and oriented to person, place and time Appropriate affect fair judgement Neuro Muscles Strength 4/5 in bilateral lower and right upper extremities , left upper extremities limited due to fracture Sensation to light touch grossly present throughout Cranial nerves II-XII grossly intact No focal sensory deficits Lymphatics: no palpable cervical or supraclavicular , or inguinal lymph nodes Results CBC & Chem 7: 10/10/21 17:31 10/10/21 17:31 Labs: Abnormal Lab Results - Last 24 Hours (Table) 10/10/21 10/10/21 10/10/21 Range/Units 17:31 17:31 17:31 WBC 11.2 H (3.8-10.6) k/uL Neutrophils # 8.5 H (1.3-7.7) k/uL APTT 21.8 L (22.0-30.0) sec Sodium 136 L (137-145) mmol/L Creatinine 0.53 L (0.66-1.25) mg/dL Glucose 114 H (74-99) mg/dL Assessment and Plan Assessment: syncope rule out cardiac arrhythmia frequent 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 Patient denies any past medical history of stroke, CAD, CHF, CKD, or DM. Patient is functional at baseline at >4 METs he is able to climb one or two flight of stairs with no limitations, he is able to perform house chores. Patient labs reviewed, EKG reviewed Patient is might go for left humeral fracture repair . This is of moderate risk, however, patient has no medical risk factors from her past medical history except for advanced age. Patient can proceed to surgery with moderate but ac ceptable perioperative cardiovascular risk factors. This has been explained to the patient , all questions answered, patient verbalized understanding and agreement.
[2021-10-11] MEDS: IPRATROPIUM 0.5 MG/2.5 ML NEBU INHALATION SCH ×4 (07:18→20:41)
[2021-10-11] MEDS: FINASTERIDE 5 MG TAB PO SCH (09:30)
[2021-10-11 10:06] LABS: Anion Gap 12.2 mmol/L (10.00-18.00); BUN/Creat Ratio 23.14 Ratio (12.00-20.00); Blood Urea Nitrogen 16.2 mg/dL (9.0-27.0); Calcium 8.8 mg/dL (8.7-10.3); Carbon Dioxide 21.8 mmol/L (20.0-27.5); Magnesium 2.1 mg/dL (1.5-2.4); Non-African American GFR(CKD) 83.7 (60.0-200.0); Potassium 4.5 mmol/L (3.5-5.5)
--- NOTE | 2021-10-11 10:20 | P.CRDCN ---
History of Present Illness Consult date: 10/11/21 History of present illness: History of Present Illness: The patient is an 89-year-old male with a history hyperlipidemia who presented after a fall and a fracture of the left humerus. He was trying to close the trunk of his car after he put in his walker and lost his balance, fell back and injured his left arm. At that time he had no syncope, palpitations or change in his breathing. He has been unsteady at times walking and has been using his walker. On the same day earlier while having coffee he had a syncopal episode, he is unsure for how long. He does not recall the event in detail but when he came to he had a bruise on his right side of the face. He denies any palpitations, presyncope symptoms, chest discomfort or dyspnea. He denies any tonic-clonic activity or loss of bladder control. He has no prior syncopal episode. He denies any history of myocardial infarction or angina pectoris. He has no history of arrhythmia or heart failure. He had an echocardiogram in July 2021 that showed a normal systolic function with no evidence of segmen sheldon wall motion abnormality. He has a history of hyperlipidemia but he is nondiabetic, nonsmoker. He has peripheral edema that improved with the use of pressure stocking. Since presentation he has been in sinus mechanism without any arrhythmia. His cardiac enzymes and EKG are unremarkable. His medication at home include Lipitor, 10 mg daily in addition to aspirin. Review of Systems: Respiratory: [No history of asthma, bronchitis or recent cough.] GI: [She had nausea and vomiting today. No history of peptic ulcer disease. No recent GI bleed.] : [No hematuria or dysuria.] Nervous System: [No stroke or seizure. He had a probable TIA few years ago.] Physical Examination: 89-year-old male, alert oriented no apparent distress, appears younger than stated age. Blood pressure 124/80 with a heart rate in the 80s Head: [Normocephalic. Ecchymosis around the right eye] Eyes: [Sclerae nonicteric.] Neck: [Good carotid upstroke, no bruit, no jugular venous distention.] Lungs: [Clear to auscultation.] Heart: [Regular rate and rhythm, S1-S2, no S3, no rub. Systolic ejection murmur murmur.] Abdomen: [Soft nontender, positive bowel sounds no organomegaly.] Extremities: [1-2+ edema, intact distal pulses.] Labs: EKG shows sinus mechanism with no acute ST segment changes, BUN and creatinine 16 and 0.7, potassium 4.5, hemoglobin 14.8. Troponin less than 0.012. Impression: 1. Mechanical fall and fracture of the left humerus 2. Syncope prior to that of unclear etiology, no evidence to suggest ischemia and no evidence of malignant arrhythmia since admission 3. Prior history of hyperlipidemia Plan: 1. The patient has a normal systolic function by echocardiogram done in [facility] er. I see no indication to repeat the echo 2. I would recommend an event monitor as an outpatient to rule out arrhythmia 3. Continue other medications 4. Follow-up as an outpatient following discharge 5. Thank you for this consult we will follow with you Past Medical History Past Medical History: Asthma, CVA/TIA, Eye Disorder, GERD/Reflux, Osteoarthritis (OA) Additional Past Medical History / Comment(s): STATES HAS BEEN TOLD COPD, USES NO INHALERS, VERTIGO IN THE PAST, tia with a little residual slurred speech History of Any Multi-Drug Resistant Organisms: None Reported Past Surgical History: Hernia Repair, Orthopedic Surgery Additional Past Surgical History / Comment(s): HERNIA X2, LEFT KNEE HUNTER'S CYST REMOVED, KEILA CATARACT SX, 10-11-15 TOTAL RT KNEE REPLACEMENT. Past Anesthesia/Blood Transfusion Reactions: Postoperative Nausea & Vomiting (PONV) Past Psychological History: No Psychological Hx Reported Additional Psychological History / Comment(s): PT STATED HE LOST HIS IN AUGUST 2015. HAS SOME PERIODS OF SADNESS. Smoking Status: Former smoker Past Alcohol Use History: None Reported Additional Past Alcohol Use History / Comment(s): QUIT SMOKING 1995, STARTED 1950, SMOKED 1PPD Past Drug Use History: None Reported - Past Family History Father Family Medical History: CVA/TIA Mother Additional Family Medical History / Comment(s): ASHD Medications and Allergies Home Medications Medication Instructions Recorded Confirmed Type Cyanocobalamin [Vitamin B-12 1,000 mcg SQ Q30D 09/27/15 10/10/21 History Injection] Finasteride [Proscar] 5 mg PO DAILY 08/01/18 10/10/21 History Multivitamins, Thera [Multivitamin 1 tab PO HS 05/28/20 10/10/21 History (formulary)] Omeprazole 20 mg PO HS 05/28/20 10/10/21 History Tamsulosin [Flomax] 0.4 mg PO PC-SUPPER 05/28/20 10/10/21 History Atorvastatin Calcium [Lipitor] 10 mg PO PC-SUPPER 09/22/20 10/10/21 History Aspirin EC [Ecotrin Low Dose] 162 mg PO DAILY 10/10/21 10/10/21 History Prevagen 1 cap PO HS 10/10/21 10/10/21 History Umeclidinium Brm/Vilanterol Tr 1 puff INHALATION RT-HS 10/10/21 10/10/21 History [Anoro Ellipta 62.5-25 Mcg INH] Allergies Allergy/AdvReac Type Severity Reaction Status Date / Time No Known Allergies Allergy Verified 10/10/21 18:43 Physical Exam Vitals: Vital Signs Temp Pulse Pulse Resp BP BP Pulse Ox 10/11/21 07:20 84 16 10/11/21 07:00 90 16 124/87 95 10/11/21 03:25 94 16 124/87 95 10/10/21 21:39 85 18 133/98 96 10/10/21 19:38 100 18 137/95 96 10/10/21 18:48 99 18 154/107 96 10/10/21 16:04 98.2 F 89 16 179/135 95 Intake and Output 10/10/21 10/11/21 10/11/21 22:59 06:59 14:59 Other: Weight 72.575 kg 72.575 kg Results 10/10/21 17:31 10/11/21 07:21 Cardiac Enzymes 10/10/21 10/10/21 10/10/21 Range/Units 17:31 17:31 21:42 AST 35 (17-59) U/L Troponin I 0.019 <0.012 (0.000-0.034) ng/mL 10/11/21 Range/Units 00:41 AST (17-59) U/L Troponin I <0.012 (0.000-0.034) ng/mL Coagulation 10/10/21 Range/Units 17:31 PT 10.4 (9.0-12.0) sec APTT 21.8 L (22.0-30.0) sec CBC 10/10/21 Range/Units 17:31 WBC 11.2 H (3.8-10.6) k/uL RBC 4.64 (4.30-5.90) m/uL Hgb 14.8 (13.0-17.5) gm/dL Hct 45.4 (39.0-53.0) % Plt Count 254 (150-450) k/uL Comprehensive Metabolic Panel 10/10/21 10/11/21 Range/Units 17:31 07:21 Sodium 136 L 139 (137-145) mmol/L Potassium 4.6 4.5 (3.5-5.1) mmol/L Chloride 102 105 (98-107) mmol/L Carbon Dioxide 27 21.8 (22-30) mmol/L BUN 15 16.2 (9-20) mg/dL Creatinine 0.53 L 0.7 (0.66-1.25) mg/dL Glucose 114 H 115 H (74-99) mg/dL Calcium 9.5 8.8 (8.4-10.2) mg/dL AST 35 (17-59) U/L ALT 25 (4-49) U/L Alkaline Phosphatase 76 (38-126) U/L Total Protein 7.3 (6.3-8.2) g/dL Albumin 4.2 (3.5-5.0) g/dL Current Medications Generic Name Dose Route Start Last Admin Trade Name Freq PRN Reason Stop Dose Admin Atorvastatin Calcium 10 mg 10/11/21 18:30 Atorvastatin 10 Mg Tab PO PC-SUPPER KADI Finasteride 5 mg 10/11/21 09:00 10/11/21 09:30 Finasteride 5 Mg Tab PO Not Given DAILY KADI Formoterol Fumarate 20 mcg 10/11/21 20:00 Formoterol Fumarate 20 Mcg/2 Ml Nebu INHALATION RT-BID KADI Ipratropium [place] 0.5 mg 10/11/21 08:00 10/11/21 07:18 Ipratropium 0.5 Mg/2.5 Ml Nebu INHALATION 0.5 mg RT-QID KADI Administration Morphine Sulfate 2 mg 10/11/21 03:16 Morphine Sulfate 2 Mg/Ml Syringe IVP Q4HR PRN Pain/Discomfort Naloxone HCl 0.2 mg 10/10/21 19:53 Naloxone 0.4 Mg/Ml 1 Ml Vial IV Q2M PRN Opioid Reversal Pantoprazole Sodium 40 mg 10/11/21 21:00 Pantoprazole 40 Mg Tablet PO HS KADI Tamsulosin HCl 0.4 mg 10/11/21 18:30 Tamsulosin 0.4 Mg Cap.Er.24h PO PC-SUPPER KADI Intake and Output 10/10/21 10/11/21 10/11/21 22:59 06:59 14:59 Other: Weight 72.575 kg 72.575 kg 10/10/21 17:31 10/11/21 07:21
--- NOTE | 2021-10-11 12:13 | P.GSHP ---
<Emiliana Martinez - Last Filed: 10/11/21 11:56> History of Present Illness H&P Date: 10/11/21 CHIEF COMPLAINT: Fall HISTORY OF PRESENT ILLNESS: This is a 89-year-old male who was brought into the emergency room after falling. Patient reports initially yesterday morning he had been sitting at his table drinking coffee and thinks he passed out. He does not recall the event. However when he came to the noted to have bruising around his right eye. Later in the day he was doing work at his [employer] and went to put his walker back into the trunk of the car stepped back and lost his balance and fell landing on his left arm. He was unable to get up. He had 2 wave down a bystander for help. Patient reports no loss of consciousness. Denies any injury to his head. EMS found that the shoulder was dislocated they reduce the shoulder at the scene. X-ray does show evidence of a left proximal humerus displaced fracture. Orthopedics are following. Patient denies any history of any cardiac arrhythmias. Patient has been evaluated by cardiology. Patient also had a laceration above the right eyebrow ER physician closed with Dermabond. He denies any chest pain or shortness of breath. Denies any abdominal pain. Denies any nausea or vomiting. He is having flatus. Denies any blood in his urine. PAST MEDICAL HISTORY: See list. PAST SURGICAL HISTORY: See list. MEDICATIONS: See list. ALLERGIES: See list. SOCIAL HISTORY: No illicit drug use. REVIEW OF SYSTEMS: CONSTITUTIONAL: Denies fever or chills. HEENT: Denies blurred vision, vision changes, or eye pain. Denies hemoptysis CARDIOVASCULAR: Denies chest pain or pressure. RESPIRATORY: No shortness of breath. GASTROINTESTINAL: See HPI for pertinent findings HEMATOLOGIC: Denies bleeding disorders. GENITOURINARY: Denies any blood in urine or increased urinary frequency. SKIN: Denies pruitis. Denies rash. PHYSICAL EXAM: VITAL SIGNS: Reviewed GENERAL: Well-developed in no acute distress. HEENT: No sclera icterus. Extraocular movements grossly intact. Moist buccal mucosa. Head normocephalic. No nasal drainage. Patient does have bruising along the right orbital area. Laceration above the right eyebrow with ABDOMEN: Soft. Nondistended. Nontender NEUROLOGIC: Alert and oriented. Cranial nerves II through XII grossly intact. Extremities left shoulder swelling with bruising laterally. +2 radial pulse. Hand underwriting support manager equal bilaterally. Patient able to move both lower extremities LABORATORY DATA: WBC 11.2 hemoglobin 14.8 platelets 254 Sodium 139 potassium 4.5 creatinine 0.7 glucose 1:15 Troponins negative 3 LFTs normal Urinalysis no evidence of infection no blood COVID-19 not detected IMAGING: CT of the head and cervical spine no acute fracture or dislocation evident in the cervical spine. No acute intracranial hemorrhage, mass effect or midline shift seen X-ray of the left arm proximal humerus fracture CTA of the left upper extremity proximal left humerus fracture ASSESSMENT: 1. Fall with fracture of left humerus 2. Laceration above the right eyebrow with bruising around right orbit 3. Syncopal episode PLAN: -Orthopedics consult in regards to left humerus fracture -Cardiology consulted regarding syncopal episode. The recommending event monitor outpatient. -Medical service consult for medical management -Continue supportive care -ok for regular diet if no orthopedic intervention planned -Continue pain medication as needed -GI prophylaxis Protonix and DVT prophylaxis subcu heparin Physician Supervisor Labor Gang note has been reviewed by physician. Signing provider agrees with the documented findings, assessment, and plan of care. 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 Past Anesthesia/Blood Transfusion Reactions: Postoperative Nausea & Vomiting (PO NV) Past Psychological History: No Psychological Hx Reported Additional Psychological History / Comment(s): PT STATED HE LOST HIS IN AUGUST 2015. HAS SOME PERIODS OF SADNESS. Smoking Status: Former smoker Past Alcohol Use History: None Reported Additional Past Alcohol Use History / Comment(s): QUIT SMOKING 1995, STARTED 1950, SMOKED 1PPD Past Drug Use History: None Reported - Past Family History Father Family Medical History: CVA/TIA Mother Additional Family Medical History / Comment(s): ASHD Medications and Allergies Home Medications Medication Instructions Recorded Confirmed Type Cyanocobalamin [Vitamin B-12 1,000 mcg SQ Q30D 09/27/15 10/10/21 History Injection] Finasteride [Proscar] 5 mg PO DAILY 08/01/18 10/10/21 History Multivitamins, Thera [Multivitamin 1 tab PO HS 05/28/20 10/10/21 History (formulary)] Omeprazole 20 mg PO HS 05/28/20 10/10/21 History Tamsulosin [Flomax] 0.4 mg PO PC-SUPPER 05/28/20 10/10/21 History Atorvastatin Calcium [Lipitor] 10 mg PO PC-SUPPER 09/22/20 10/10/21 History Aspirin EC [Ecotrin Low Dose] 162 mg PO DAILY 10/10/21 10/10/21 History Prevagen 1 cap PO HS 10/10/21 10/10/21 History Umeclidinium Brm/Vilanterol Tr 1 puff INHALATION RT-HS 10/10/21 10/10/21 History [Anoro Ellipta 62.5-25 Mcg INH] Allergies Allergy/AdvReac Type Severity Reaction Status Date / Time No Known Allergies Allergy Verified 10/10/21 18:43 Surgical - Exam Vital Signs Temp Pulse Resp BP Pulse Ox 98.2 F 89 16 179/135 95 10/10/21 16:04 10/10/21 16:04 10/10/21 16:04 10/10/21 16:04 10/10/21 16:04 Results - Labs 10/10/21 17:31 10/11/21 07:21 Abnormal Lab Results - Last 24 Hours (Table) 10/10/21 10/10/21 10/10/21 Range/Units 17:31 17:31 17:31 WBC 11.2 H (3.8-10.6) k/uL Neutrophils # 8.5 H (1.3-7.7) k/uL APTT 21.8 L (22.0-30.0) sec Sodium 136 L (137-145) mmol/L Creatinine 0.53 L (0.66-1.25) mg/dL Glucose 114 H (74-99) mg/dL Diabetes panel 10/10/21 Range/Units 17:31 Sodium 136 L (137-145) mmol/L Potassium 4.6 (3.5-5.1) mmol/L Chloride 102 (98-107) mmol/L Carbon Dioxide 27 (22-30) mmol/L BUN 15 (9-20) mg/dL Creatinine 0.53 L (0.66-1.25) mg/dL Glucose 114 H (74-99) mg/dL Calcium 9.5 (8.4-10.2) mg/dL AST 35 (17-59) U/L ALT 25 (4-49) U/L Alkaline Phosphatase 76 (38-126) U/L Total Protein 7.3 (6.3-8.2) g/dL Albumin 4.2 (3.5-5.0) g/dL Calcium panel 10/10/21 Range/Units 17:31 Calcium 9.5 (8.4-10.2) mg/dL Albumin 4.2 (3.5-5.0) g/dL Pituitary panel 10/10/21 Range/Units 17:31 Sodium 136 L (137-145) mmol/L Potassium 4.6 (3.5-5.1) mmol/L Chloride 102 (98-107) mmol/L Carbon Dioxide 27 (22-30) mmol/L BUN 15 (9-20) mg/dL Creatinine 0.53 L (0.66-1.25) mg/dL Glucose 114 H (74-99) mg/dL Calcium 9.5 (8.4-10.2) mg/dL Adrenal panel 10/10/21 Range/Units 17:31 Sodium 136 L (137-145) mmol/L Potassium 4.6 (3.5-5.1) mmol/L Chloride 102 (98-107) mmol/L Carbon Dioxide 27 (22-30) mmol/L BUN 15 (9-20) mg/dL Creatinine 0.53 L (0.66-1.25) mg/dL Glucose 114 H (74-99) mg/dL Calcium 9.5 (8.4-10.2) mg/dL Total Bilirubin 1.1 (0.2-1.3) mg/dL AST 35 (17-59) U/L ALT 25 (4-49) U/L Alkaline Phosphatase 76 (38-126) U/L Total Protein 7.3 (6.3-8.2) g/dL Albumin 4.2 (3.5-5.0) g/dL <Boutt,Jimmie - Last Filed: 10/11/21 13:29> History of Present Illness I have personally seen and examined the patient, reviewed the SENIOR FACILITIES MANAGER /PAs history, exam and MDM and agree with the assessment and plan as written. Based on total visit time, I have performed more than 50% of the visit. As above: Patient feels well today. Only mild pain left arm. Has been seen by both orthopedics and cardiology. Denies pain elsewhere. No further syncopal episodes. Resume regular diet. Continue workup of the patient's syncopal episode. Home when cleared by consultants. Surgical - Exam Vital Signs Temp Pulse Resp BP Pulse Ox 98.2 F 89 16 179/135 95 10/10/21 16:04 10/10/21 16:04 10/10/21 16:04 10/10/21 16:04 10/10/21 16:04 Results - Labs 10/10/21 17:31 10/11/21 07:21 Abnormal Lab Results - Last 24 Hours (Table) 10/10/21 10/10/21 10/10/21 Range/Units 17:31 17:31 17:31 WBC 11.2 H (3.8-10.6) k/uL Neutrophils # 8.5 H (1.3-7.7) k/uL APTT 21.8 L (22.0-30.0) sec Sodium 136 L (137-145) mmol/L Creatinine 0.53 L (0.66-1.25) mg/dL BUN/Creatinine Ratio (12.00-20.00) Ratio Glucose 114 H (74-99) mg/dL 10/11/21 Range/Units 07:21 WBC (3.8-10.6) k/uL Neutrophils # (1.3-7.7) k/uL APTT (22.0-30.0) sec Sodium (137-145) mmol/L Creatinine (0.66-1.25) mg/dL BUN/Creatinine Ratio 23.14 H (12.00-20.00) Ratio Glucose 115 H (74-99) mg/dL Diabetes panel 10/10/21 10/11/21 Range/Units 17:31 07:21 Sodium 136 L 139 (137-145) mmol/L Potassium 4.6 4.5 (3.5-5.1) mmol/L Chloride 102 105 (98-107) mmol/L Carbon Dioxide 27 21.8 (22-30) mmol/L BUN 15 16.2 (9-20) mg/dL Creatinine 0.53 L 0.7 (0.66-1.25) mg/dL Glucose 114 H 115 H (74-99) mg/dL Calcium 9.5 8.8 (8.4-10.2) mg/dL AST 35 (17-59) U/L ALT 25 (4-49) U/L Alkaline Phosphatase 76 (38-126) U/L Total Protein 7.3 (6.3-8.2) g/dL Albumin 4.2 (3.5-5.0) g/dL Calcium panel 10/10/21 10/11/21 Range/Units 17:31 07:21 Calcium 9.5 8.8 (8.4-10.2) mg/dL Albumin 4.2 (3.5-5.0) g/dL Pituitary panel 10/10/21 10/11/21 Range/Units 17:31 07:21 Sodium 136 L 139 (137-145) mmol/L Potassium 4.6 4.5 (3.5-5.1) mmol/L Chloride 102 105 (98-107) mmol/L Carbon Dioxide 27 21.8 (22-30) mmol/L BUN 15 16.2 (9-20) mg/dL Creatinine 0.53 L 0.7 (0.66-1.25) mg/dL Glucose 114 H 115 H (74-99) mg/dL Calcium 9.5 8.8 (8.4-10.2) mg/dL Adrenal panel 10/10/21 10/11/21 Range/Units 17:31 07:21 Sodium 136 L 139 (137-145) mmol/L Potassium 4.6 4.5 (3.5-5.1) mmol/L Chloride 102 105 (98-107) mmol/L Carbon Dioxide 27 21.8 (22-30) mmol/L BUN 15 16.2 (9-20) mg/dL Creatinine 0.53 L 0.7 (0.66-1.25) mg/dL Glucose 114 H 115 H (74-99) mg/dL Calcium 9.5 8.8 (8.4-10.2) mg/dL Total Bilirubin 1.1 (0.2-1.3) mg/dL AST 35 (17-59) U/L ALT 25 (4-49) U/L Alkaline Phosphatase 76 (38-126) U/L Total Protein 7.3 (6.3-8.2) g/dL Albumin 4.2 (3.5-5.0) g/dL
--- NOTE | 2021-10-11 15:28 | P.PN ---
Subjective Patient was examined at bedside not complaining of any new symptomatology. He is unable to remember the episode leading to his syncope. He denies any chest pain, shortness of breath or palpitations. He also denies any urinary or bowel incontinence. Objective - Vital Signs Vital signs: Vital Signs Temp 98.3 F 10/11/21 14:17 Pulse 105 H 10/11/21 14:17 Resp 17 10/11/21 14:17 BP 117/74 10/11/21 14:17 Pulse Ox 97 10/11/21 14:17 Intake & Output 10/10/21 10/11/21 10/11/21 18:59 06:59 18:59 Intake Total 118 Balance 118 Weight 72.575 kg 72.575 kg Intake: Oral 118 Other: # Voids 2 # Bowel Movements 0 - Exam Constitutional: No acute distress, conversant, pleasant Eyes: Anicteric sclerae, moist conjunctiva, Pupils equal round reactive to light ENMT: NC/bruising and echymosis around right eye, with stiches in his eyebrows Oropharynx clear, no erythema, or exudates Neck: Supple, , no masses, or JVD No carotid bruits No thyromegaly Lungs: Clear to auscultation Clear to percussion Normal respiratory effort, no accessory muscle use Cardiovascular: Heart regular in rate and rhythm, No murmurs, gallops, or rubs No peripheral edema Abdominal: Soft Nontender, no guarding, rebound or rigidity Abdomen moving with respiration Normoactive bowel sounds No hepatomegaly, No splenomegaly No palpable mass No abdominal wall hernia noted Skin: swelling and bruising over left shoulder, otherwise , Normal temperature, tone, texture, turgor Extremities: No digital cyanosis No clubbing Pedal pulses intact and symmetrical Radial pulses intact and symmetrical , capillary refill immediate No calf tenderness Psychiatric: Alert and oriented to person, place and time Appropriate affect fair judgement Neuro Muscles Strength 4/5 in bilateral lower and right upper extremities , left upper extremities limited due to fracture Sensation to light touch grossly present throughout Cranial nerves II-XII grossly intact No focal sensory deficits Lymphatics: no palpable cervical or supraclavicular , or inguinal lymph nodes - Labs CBC & Chem 7: 10/10/21 17:31 10/11/21 07:21 Labs: Abnormal Lab Results - Last 24 Hours (Table) 02/10/10/21 10/10/21 Range/Units 17:31 17:31 17:31 WBC 11.2 H (3.8-10.6) k/uL Neutrophils # 8.5 H (1.3-7.7) k/uL APTT 21.8 L (22.0-30.0) sec Sodium 136 L (137-145) mmol/L Creatinine 0.53 L (0.66-1.25) mg/dL BUN/Creatinine Ratio (12.00-20.00) Ratio Glucose 114 H (74-99) mg/dL 10/11/21 Range/Units 07:21 WBC (3.8-10.6) k/uL Neutrophils # (1.3-7.7) k/uL APTT (22.0-30.0) sec Sodium (137-145) mmol/L Creatinine (0.66-1.25) mg/dL BUN/Creatinine Ratio 23.14 H (12.00-20.00) Ratio Glucose 115 H (74-99) mg/dL Assessment and Plan Plan: Assessment: #1 syncope rule out cardiogenic cause versus less likely neurogenic #2 acute proximal left humeral fracture Plan: -Continue management as per primary care team -Further recommendations regarding orthopedics -Pain control when necessary -Patient evaluated by cardiology recommending outpatient event monitor -Pain control and DVT prophylaxis per primary.
--- NOTE | 2021-10-11 15:42 | P.CON ---
Consult Note - . Consult date: 10/10/21 Assessment/Plan:: Pt is an 89M with a left proximal humerus fracture after a ground level fall. There was some reports of weak pulse and discoloration of the hand but by the time patient arrived in the ER, the extremity did have have any indications of vascular compromise. PMH, PSH, Meds, Allergies reviewed in the chart. There is an impressively large hematoma on the anterior shoulder but the skin does not look at risk. He has sensation and motor intact to the Axillary, Median, Ulnar, and Radial nerves. Cap refill is brisk. XR/CT also showed a proximal humerus fracture through the anatomic neck that is displaced but without glenohumeral dislocation. CTA confirmed that there is no vascular compromise. This will most likely be ammenable to nonoperative treatment. Recommend a sling, pain control, and follow up this coming week in the office for repeat XR's. Exam Osteopathic Statement: *. No significant issues noted on an osteopathic structural exam other than those noted in the History and Physical/Consult. - Exam Weight bearing status: none Objective Vital signs: Vital Signs Temp Pulse Pulse Resp BP BP Pulse Ox 10/11/21 14:17 98.3 F 105 H 17 117/74 97 10/11/21 14:01 98.3 F 105 H 17 117/74 96 10/11/21 12:19 84 10/11/21 12:10 84 10/11/21 10:52 98.6 F 86 18 110/75 95 10/11/21 07:20 84 16 10/11/21 07:00 90 16 124/87 95 10/11/21 03:25 94 16 124/87 95 10/10/21 21:39 85 18 133/98 96 10/10/21 19:38 100 18 137/95 96 10/10/21 18:48 99 18 154/107 96 10/10/21 16:04 98.2 F 89 16 179/135 95 Intake and Output 10/11/21 10/11/21 10/11/21 06:59 14:59 22:59 Intake Total 118 Balance 118 Intake: Oral 118 Other: # Voids 2 # Bowel Movements 0 Weight 72.575 kg Range of motion: very large hematoma, ROM not tested, cap refill brisk, Axillary, Median, Ra - Labs CBC & BMP: 10/10/21 17:31 10/11/21 07:21 Labs: Abnormal Lab Results - Last 24 Hours (Table) 10/10/21 10/10/21 10/10/21 Range/Units 17:31 17:31 17:31 WBC 11.2 H (3.8-10.6) k/uL Neutrophils # 8.5 H (1.3-7.7) k/uL APTT 21.8 L (22.0-30.0) sec Sodium 136 L (137-145) mmol/L Creatinine 0.53 L (0.66-1.25) mg/dL BUN/Creatinine Ratio (12.00-20.00) Ratio Glucose 114 H (74-99) mg/dL 10/11/21 Range/Units 07:21 WBC (3.8-10.6) k/uL Neutrophils # (1.3-7.7) k/uL APTT (22.0-30.0) sec Sodium (137-145) mmol/L Creatinine (0.66-1.25) mg/dL BUN/Creatinine Ratio 23.14 H (12.00-20.00) Ratio Glucose 115 H (74-99) mg/dL
[2021-10-11] MEDS: TAMSULOSIN 0.4 MG CAP.ER.24H PO SCH (19:35)
[2021-10-11] MEDS: ATORVASTATIN 10 MG TAB PO SCH (19:35)
[2021-10-11] MEDS: HEPARIN SODIUM,PORCINE/PF 5,000 UNIT/0.5 ML SYRINGE SQ SCH (20:19)
[2021-10-11] MEDS: PANTOPRAZOLE 40 MG TABLET PO SCH (20:19)
[2021-10-11] MEDS: ACETAMINOPHEN TAB 325 MG TAB PO PRN (20:37)
[2021-10-11] MEDS: FORMOTEROL FUMARATE 20 MCG/2 ML NEBU INHALATION SCH (20:41)
[2021-10-12] MEDS: FORMOTEROL FUMARATE 20 MCG/2 ML NEBU INHALATION SCH ×2 (08:29→20:35)
[2021-10-12] MEDS: IPRATROPIUM 0.5 MG/2.5 ML NEBU INHALATION SCH ×4 (08:29→20:35)
[2021-10-12] MEDS: FINASTERIDE 5 MG TAB PO SCH (08:41)
[2021-10-12] MEDS: HEPARIN SODIUM,PORCINE/PF 5,000 UNIT/0.5 ML SYRINGE SQ SCH ×2 (08:41→19:21)
--- NOTE | 2021-10-12 09:52 | P.PN ---
Subjective Progress Note Date: 10/12/21 Principal diagnosis: Status post fall Patient says he feels about the same. Feels somewhat weak. Mild left arm pain. No new pain elsewhere. No shortness of breath. Objective - Vital Signs Vital signs: Vital Signs Temp 98.6 F 10/12/21 07:00 Pulse 84 10/12/21 07:00 Resp 16 10/12/21 07:00 BP 114/75 10/12/21 07:00 Pulse Ox 93 L 10/12/21 07:00 Intake & Output 10/11/21 10/12/21 10/12/21 18:59 06:59 18:59 Intake Total 236 Balance 236 Intake: Oral 236 Other: # Voids 2 # Bowel Movements 0 1 - Exam Abdomen: Soft, nontender, nondistended Left upper arm tenderness with mild ecchymosis - Labs CBC & Chem 7: 10/10/21 17:31 10/11/21 07:21 Labs: Abnormal Lab Results - Last 24 Hours (Table) 10/11/21 Range/Units 07:21 BUN/Creatinine Ratio 23.14 H (12.00-20.00) Ratio Glucose 115 H (70-110) mg/dL Assessment and Plan (1) Fall Narrative/Plan: Patient gradually improving. Still feels somewhat weak. Discharge planning recommending home with home care. We'll try to clarify that further. Possible discharge tomorrow. Await physical therapy and occupational therapy full assessment. Outpatient follow-up with cardiology and orthopedic surgery. Current Visit: Yes Status: Acute Code(s): W19.XXXA - UNSPECIFIED FALL, INITIAL ENCOUNTER SNOMED Code(s): 9394320
--- NOTE | 2021-10-12 10:39 | P.PN ---
Subjective History of Present Illness: The patient is an 89-year-old male with a history hyperlipidemia who presented after a fall and a fracture of the left humerus. He was trying to close the trunk of his car after he put in his walker and lost his balance, fell back and injured his left arm. At that time he had no syncope, palpitations or change in his breathing. He has been unsteady at times walking and has been using his walker. On the same day earlier while having coffee he had a syncopal episode, he is unsure for how long. He does not recall the event in detail but when he came to he had a bruise on his right side of the face. He denies any palpitations, presyncope symptoms, chest discomfort or dyspnea. He denies any tonic-clonic activity or loss of bladder control. He has no prior syncopal episode. He denies any history of myocardial infarction or angina pectoris. He has no history of arrhythmia or heart failure. He had an echocardiogram in July 2021 that showed a normal systolic function with no evidence of segmental wall motion abnormality. He has a history of hyperlipidemia but he is nondiabetic, nonsmoker. He has peripheral edema that improved with the use of pressure stocking. Since presentation he has been in sinus mechanism without any arrhythmia. His cardiac enzymes and EKG are unremarkable. His medication at home include Lipitor, 10 mg daily in addition to aspirin. 10/12/2021 Patient seen and examined sitting up eating breakfast in no acute distress. His symptoms of dizziness or syncope. He is complaining of pain to the left upper arm. Breathing is stable. Blood pressure 114/75 heart rate 84 afebrile maintaining oxygen saturation on room air. He has been seen by orthopedics and cleared for discharge pending sling placement. Telemetry tracings reveal sinus rhythm with no arrhythmia or pauses. Physical Examination: Constitutional: In no acute distress, stable breathing. Neck: Good carotid upstroke, no bruit, no jugular venous distention. Lungs: Clear to auscultation Heart: Regular rate and rhythm, S1-S2, no S3, no rub. Systolic ejection murmur murmur. Extremities: Trace edema bilaterally. Impression: Mechanical fall and fracture of the left humerus Syncope prior to that of unclear etiology, no evidence to suggest ischemia and no evidence of malignant arrhythmia since admission Hyperlipidemia Plan: Event monitor placement has been set up for home delivery through the office. Stable for discharge from a cardiac perspective. Follow up with Dr. Nunes, appointment has been made already. Nurse Practitioner note has been reviewed, I agree with a documented findings and plan of care. Patient was seen and examined. Objective - Vital Signs Vital signs: Vital Signs Temp 98.6 F 10/12/21 07:00 Pulse 84 10/12/21 08:00 Resp 16 10/12/21 08:00 BP 114/75 10/12/21 07:00 Pulse Ox 93 L 10/12/21 07:00 Intake & Output 10/11/21 10/12/21 10/12/21 18:59 06:59 18:59 Intake Total 236 358 Balance 236 358 Intake: Oral 236 358 Other: # Voids 2 # Bowel Movements 0 1 - Labs CBC & Chem 7: 10/10/21 17:31 10/11/21 07:21
--- NOTE | 2021-10-12 10:55 | P.PN ---
Subjective Patient was examined at bedside today not complaining of any worsening intractable left shoulder pain, chest pain or palpitations. Case also discussed with RN. We will breech with orthopedic regarding sling. Objective - Vital Signs Vital signs: Vital Signs Temp 98.6 F 10/12/21 07:00 Pulse 84 10/12/21 08:00 Resp 16 10/12/21 08:00 BP 114/75 10/12/21 07:00 Pulse Ox 93 L 10/12/21 07:00 Intake & Output 10/11/21 10/12/21 10/12/21 18:59 06:59 18:59 Intake Total 236 358 Balance 236 358 Intake: Oral 236 358 Other: # Voids 2 # Bowel Movements 0 1 - Exam Constitutional: No acute distress, conversant, pleasant Eyes: Anicteric sclerae, moist conjunctiva, Pupils equal round reactive to light ENMT: NC/bruising and echymosis around right eye, with stiches in his eyebrows Oropharynx clear, no erythema, or exudates Neck: Supple, , no masses, or JVD No carotid bruits No thyromegaly Lungs: Clear to auscultation Clear to percussion Normal respiratory effort, no accessory muscle use Cardiovascular: Heart regular in rate and rhythm, No murmurs, gallops, or rubs No peripheral edema Abdominal: Soft Nontender, no guarding, rebound or rigidity Abdomen moving with respiration Normoactive bowel sounds No hepatomegaly, No splenomegaly No palpable mass No abdominal wall hernia noted Skin: swelling and bruising over left shoulder, otherwise , Normal temperature, tone, texture, turgor Extremities: No digital cyanosis No clubbing Pedal pulses intact and symmetrical Radial pulses intact and symmetrical , capillary refill immediate No calf tenderness Psychiatric: Alert and oriented to person, place and time Appropriate affect fair judgement Neuro Muscles Strength 4/5 in bilateral lower and right upper extremities , left upper extremities limited due to fracture Sensation to light touch grossly present throughout Cranial nerves II-XII grossly intact No focal sensory deficits Lymphatics: no palpable cervical or supraclavicular , or inguinal lymph nodes - Labs CBC & Chem 7: 10/10/21 17:31 10/11/21 07:21 Assessment and Plan Plan: Assessment: #1 syncope rule out cardiogenic cause versus less likely neurogenic #2 acute proximal left humeral fracture Plan: -Continue management as per primary care team -Further recommendations regarding orthopedics -Pain control when necessary -Patient evaluated by cardiology recommending outpatient event monitor -Pain control and DVT prophylaxis per primary.
[2021-10-12] MEDS: TAMSULOSIN 0.4 MG CAP.ER.24H PO SCH (18:50)
[2021-10-12] MEDS: ATORVASTATIN 10 MG TAB PO SCH (18:51)
[2021-10-12] MEDS: PANTOPRAZOLE 40 MG TABLET PO SCH (19:22)
[2021-10-13] MEDS: ACETAMINOPHEN TAB 325 MG TAB PO PRN (07:50)
[2021-10-13] MEDS: HEPARIN SODIUM,PORCINE/PF 5,000 UNIT/0.5 ML SYRINGE SQ SCH ×2 (07:51→21:54)
[2021-10-13] MEDS: FINASTERIDE 5 MG TAB PO SCH (07:51)
[2021-10-13] MEDS: IPRATROPIUM 0.5 MG/2.5 ML NEBU INHALATION SCH ×4 (08:29→20:24)
[2021-10-13] MEDS: FORMOTEROL FUMARATE 20 MCG/2 ML NEBU INHALATION SCH ×2 (08:29→20:24)
--- NOTE | 2021-10-13 09:25 | P.PN ---
Subjective Patient was examined at bedside today not complaining of any new symptomatology. Sling provided. Pending rehab placement. Objective - Vital Signs Vital signs: Vital Signs Temp 99.1 F 10/13/21 07:00 Pulse 95 10/13/21 07:00 Resp 16 10/13/21 07:00 BP 111/68 10/13/21 07:00 Pulse Ox 95 10/13/21 07:00 Intake & Output 10/12/21 10/13/21 10/13/21 18:59 06:59 18:59 Intake Total 834 Output Total 200 Balance 834 -200 Intake: Oral 834 Output: Urine 200 Other: # Voids 2 # Bowel Movements 1 - Exam Constitutional: No acute distress, conversant, pleasant Eyes: Anicteric sclerae, moist conjunctiva, Pupils equal round reactive to light ENMT: NC/bruising and echymosis around right eye, with stiches in his eyebrows Oropharynx clear, no erythema, or exudates Neck: Supple, , no masses, or JVD No carotid bruits No thyromegaly Lungs: Clear to auscultation Clear to percussion Normal respiratory effort, no accessory muscle use Cardiovascular: Heart regular in rate and rhythm, No murmurs, gallops, or rubs No peripheral edema Abdominal: Soft Nontender, no guarding, rebound or rigidity Abdomen moving with respiration Normoactive bowel sounds No hepatomegaly, No splenomegaly No palpable mass No abdominal wall hernia noted Skin: swelling and bruising over left shoulder, otherwise , Normal temperature, tone, texture, turgor Extremities: Left arm in sling Psychiatric: Alert and oriented to person, place and time Appropriate affect fair judgement Neuro Muscles Strength 4/5 in bilateral lower and right upper extremities , left upper extremities limited due to fracture Sensation to light touch grossly present throughout Cranial nerves II-XII grossly intact No focal sensory deficits Lymphatics: no palpable cervical or supraclavicular , or inguinal lymph nodes - Labs CBC & Chem 7: 10/10/21 17:31 10/11/21 07:21 Assessment and Plan Plan: Assessment: #1 syncope rule out cardiogenic cause versus less likely neurogenic #2 acute proximal left humeral fracture Plan: -Continue management as per primary care team -Further recommendations regarding orthopedics -Pain control when necessary -Patient evaluated by cardiology recommending outpatient event monitor -Pain control and DVT prophylaxis per primary.
--- NOTE | 2021-10-13 11:32 | P.PN ---
Subjective Progress Note Date: 10/13/21 Principal diagnosis: Status post fall Patient says his arm pain is improved today. He says he thinks his slurred speech which again is something he has dealt with intermittently over the years is worse today and yesterday than normal. Denies headache. No change in vision. Objective - Vital Signs Vital signs: Vital Signs Temp 99.1 F 10/13/21 07:00 Pulse 95 10/13/21 08:00 Resp 16 10/13/21 08:00 BP 111/68 10/13/21 07:00 Pulse Ox 95 10/13/21 07:00 Intake & Output 10/12/21 10/13/21 10/13/21 18:59 06:59 18:59 Intake Total 834 118 Output Total 200 Balance 834 -82 Intake: Oral 834 118 Output: Urine 200 Other: # Voids 2 # Bowel Movements 1 - Exam Abdomen: Soft, nontender, nondistended Left upper arm tenderness with mild ecchymosis Right periorbital ecchymosis stable - Labs CBC & Chem 7: 10/10/21 17:31 10/11/21 07:21 Assessment and Plan (1) Fall Narrative/Plan: Patient seems to be gradually improving. We'll ask neurology to assess this slurred speech which may be worse now than normal or the patient. Patient has elected to go to rehab. Anticipate transfer 24-48 hours. Current Visit: Yes Status: Acute Code(s): W19.XXXA - UNSPECIFIED FALL, INITIAL ENCOUNTER SNOMED Code(s): 6128069
--- NOTE | 2021-10-13 12:53 | P.CNNES ---
History of Present Illness Consult date: 10/13/21 Requesting physician: Jimmie Urban Reason for Consult: slurred speech after fall History of Present Illness: This is an 89-year-old gentleman with history of recurrent dysarthria possible TIA in the past, osteoarthritis, asthma who presented to the emergency department on 10/10/2021 after losing his balance while in the parking lot trying to close his trunk and as a result he fell. Neurology is consulted because of dysarthria. The patient's son is at bedside and helps with some of the history. Per the son he felt after the fall while the patient was in the ED after he received his imagine his dysarthria got worse from baseline. Patient denies of any new neurological deficits. He denies of numbness or tingling. For his neck pain he follows-up with chiropractor. As stated earlier the patient was trying to close his trunk and he fell to the ground since he lost his balance but did not lose consciousness. He was assisted by bystanders in standing up. EMS noticed the patient had left shoulder dislocation. Patient is on home medication of aspirin 162 mg daily and Lipitor 10 mg at daily at bedtime every other day. The patient is also on vitamin B12 at thousand micrograms every 30 days subcu, multiple vitamins, alt result, Flomax. Patient resides alone and uses a walker when needed. Patient is not on any anticoagulation. He is independent and able to handle his own ADL's. Of note the patient was evaluated by Dr. Crowell on 05/29/2020 for recurrent episode of slurred speech and he felt was possible TIA. Patient had CT angiography of the head and neck which was negative for any large vessel disease. Patient also had 2-D echo which was unremarkable. Some other workup in the hospital consisted of: CT of the head is reported as no acute intracranial hemorrhage, mass effect or midline shift is seen. CT cervical spine was reported as there is no acute fracture or dislocation evident in the cervical spine. There is prominent multifocal cervical spondylosis changes are noted. I personally reviewed the CT of the head and there is no acute subacute ischemia no intra-parenchymal hemorrhage. 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 I also reviewed the CT of cervical spine and felt the the cervical spondylosis is moderate in severity over C5-C6. I agree there is no fracture. Initial white blood cells 11.2 otherwise CBC with differential is unremarkable. Most recent chemistry panel is unremarkable. Calcium is 8.8, magnesium is 2.1. Urinalysis negative for urinary tract infection. Acosta virus PCR was not detected. PT, PTT and INR is unremarkable. Review of Systems Review of system: The 12 point system was reviewed and apparent positive and negative per HPI. 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 Past Anesthesia/Blood Transfusion Reactions: Postoperative Nausea & Vomiting (PONV) Past Psychological History: No Psychological Hx Reported Additional Psychological History / Comment(s): PT STATED HE LOST HIS IN AUGUST 2015. HAS SOME PERIODS OF SADNESS. Smoking Status: Former smoker Past Alcohol Use History: None Reported Additional Past Alcohol Use History / Comment(s): QUIT SMOKING 1995, STARTED 1950, SMOKED 1PPD Past Drug Use History: None Reported - Past Family History Father Family Medical History: CVA/TIA Mother Additional Family Medical History / Comment(s): ASHD Medications and Allergies Home Medications Medication Instructions Recorded Confirmed Type Cyanocobalamin [Vitamin B-12 1,000 mcg SQ Q30D 09/27/15 10/10/21 History Injection] Finasteride [Proscar] 5 mg PO DAILY 08/01/18 10/10/21 History Multivitamins, Thera [Multivitamin 1 tab PO HS 05/28/20 10/10/21 History (formulary)] Omeprazole 20 mg PO HS 05/28/20 10/10/21 History Tamsulosin [Flomax] 0.4 mg PO PC-SUPPER 05/28/20 10/10/21 History Atorvastatin Calcium [Lipitor] 10 mg PO PC-SUPPER 09/22/20 10/10/21 History Aspirin EC [Ecotrin Low Dose] 162 mg PO DAILY 10/10/21 10/10/21 History Prevagen 1 cap PO HS 10/10/21 10/10/21 History Umeclidinium Brm/Vilanterol Tr 1 puff INHALATION RT-HS 10/10/21 10/10/21 History [Anoro Ellipta 62.5-25 Mcg INH] Allergies Allergy/AdvReac Type Severity Reaction Status Date / Time No Known Allergies Allergy Verified 10/10/21 18:43 Physical Examination - Vital Signs Vital Signs: Vital Signs Temp Pulse Pulse Pulse Resp BP Pulse Ox 10/13/21 11:54 94 10/13/21 11:43 97 10/13/21 08:00 95 16 10/13/21 07:00 99.1 F 95 16 111/68 95 10/13/21 02:38 98.1 F 96 18 103/69 96 10/12/21 20:51 82 10/12/21 20:46 82 10/12/21 20:36 80 10/12/21 19:36 98.2 F 93 17 110/71 94 L 10/12/21 19:29 97 10/12/21 15:00 98.3 F 100 16 126/79 94 L 10/12/21 14:00 100 16 Intake and Output 10/12/21 10/13/21 10/13/21 22:59 06:59 14:59 Intake Total 118 118 Output Total 200 Balance 118 -82 Intake: Oral 118 118 Output: Urine 200 Other: # Bowel Movements 1 GENERAL: The patient is lying in bed and is not in acute distress. CHEST: The heart rate is regular rate rhythm. No murmurs to auscultation. LUNG: Clear to auscultation bilaterally no wheezing noted throughout. Not labored breathing. ABDOMEN/GI: Bowel sounds present in all 4 quadrants. No tenderness to palpation throughout. EXTREMITIES: Is wearing a sling on left arm. NEUROLOGICAL: Higher mental function: The patient is awake, alert, oriented to self, place and time. Patient is following commands. No aphasia and no neglect. Cranial nerves: The pupils are round, equal and reactive to light. Visual kuhn are full to confrontation throughout. Extraocular movement is intact no nystagmus is noted. Facial sensation is normal to touch throughout. The facial strength is normal throughout. Hearing is moderately decreased bilaterally to hand rub. Tongue is midline and moved [id number] without any difficulty. Mild to moderate dysarthria is noted (sound like hoarse voice). Shoulder shrug is normal on right but limited on left because of pain. Motor: Gait is deferred. The strength is left upper extremity is limited because of pain (wearing arm sling). Otherwise 5 over 5 throughout. Normal tone and bulk. Cerebellum: Normal finger to nose over right and could not assess left. Sensation: Sensation is normal to touch throughout. Reflexes (right/left):1+ throughout. Results - Laboratory Findings CBC and BMP: 10/10/21 17:31 10/11/21 07:21 Abnormal Lab Findings: Abnormal Labs 10/10/21 10/10/21 10/10/21 17:31 17:31 17:31 WBC 11.2 H Neutrophils # 8.5 H APTT 21.8 L Sodium 136 L Creatinine 0.53 L BUN/Creatinine Ratio Glucose 114 H 10/11/21 07:21 WBC Neutrophils # APTT Sodium Creatinine BUN/Creatinine Ratio 23.14 H Glucose 115 H Assessment and Plan Assessment: Acute on Chronic dysarthria. Rule out stroke History of recurrent dysarthria. Possible TIA that is reported. Fall without LOC: Unsure cause Acute proximal left humeral fracture due to fall Cervical spondylosis I felt was moderate severity over C5-C6 Osteoarthritis History of asthma Plan: I ordered carotid duplex. Ordered MRI Brain w/o (patient and his son wants to pursue with MRI) to rue out stroke or cause of stroke from neurological perspective. If MRI Brain is negative for acute or subacute ischemic stroke and he continues to have dysarthria that is worse from baseline then recommend to follow-up with Neurologist as outpatient and ENT as outpatient. If he does have stroke on imaging then will get rest of stroke work-up. To continue the same dose of aspirin 162 mg daily when stable. Is on Lipitor 10mg daily at bedtime which is sufficient enough for secondary stroke prophylaxis Patient had a recent CT of the head during this admission which was negative for any acute or subacute ischemia or no intracranial hemorrhage. PT, OT and [employer]SEL are is consulted Continue neuro checks. Cardiology is consulted for syncope. Recommend the patient to follow-up with orthopedic team regarding his cervical spondylosis We'll defer the rest of medical management to the primary and the general surgery team. The plan was discussed with the patient, his son (who is at bedside) and his nurse. Thank you for consultation. James Becker M.D. Neurology was Time with Patient: Greater than 30
[2021-10-13] MEDS: ATORVASTATIN 10 MG TAB PO SCH (19:08)
[2021-10-13] MEDS: TAMSULOSIN 0.4 MG CAP.ER.24H PO SCH (19:09)
--- NOTE | 2021-10-13 19:11 | US ---
EXAMINATION TYPE: US carotid duplex BILAT DATE OF EXAM: 10/13/2021 COMPARISON: CT angio head and neck, Brain CLINICAL HISTORY: dysarthria. Stroke. TIA, slurred speech EXAM MEASUREMENTS: RIGHT: Peak Systolic Velocity (PSV) cm/sec ----- Right CCA: 21.1 ----- Right ICA: 77.3 ----- Right ECA: 43.8 ICA/CCA ratio: 3.7 RIGHT: End Diastole cm/sec ----- Right CCA: 0.0 ----- Right ICA: 20.6 ----- Right ECA: 0.0 LEFT: Peak Systolic Velocity (PSV) cm/sec ----- Left CCA: 28.2 ----- Left ICA: 41.7 ----- Left ECA: 52.4 ICA/CCA ratio: 1.5 LEFT: End Diastole cm/sec ----- Left CCA: 0.0 ----- Left ICA: 14.7 ----- Left ECA: 0.0 VERTEBRALS (direction of flow): Right Vertebral: Antegrade Left Vertebral: Antegrade Rhythm: Normal Mild intimal wall thickening is noted in bilateral carotid systems, and no abnormally elevated PSV is imaged. Low PSV is seen in distal CCA and ICA bulbs bilaterally. IMPRESSION: Images and measurements suggests less than 20% stenosis in both internal carotid arteries. There is a ntegrade flow in the vertebral arteries. Criteria for Assigning % of Stenosis / Diameter reduction (Estimation based on the indirect measurements of the internal carotid artery velocities (ICA PSV). 1. Normal (no stenosis)=ICA PSV < 125 cm/s: ratio < 2.0: ICA EDV<40 cm/s. 2. Less than 50% stenosis=ICA PSV < 125 cm/s: ratio < 2.0: ICA EDV<40 cm/s. 3. 50 to 69% stenosis=ICA PSV of 125 to 230 cm/s: ration 2.0 ? 4.0: ICA EDV 40-100 cm/s. 4. Greater than 70% stenosis to near occlusion= ICA PSV > 230 cm/s: ratio > 4.0: ICA EDV > 100 cm/s. 5. Near occlusion= ICA PSV velocities may be low or undetectable: variable ratio and ICA EDV. 6. Total occlusion=unable to detect flow.
[2021-10-13] MEDS: PANTOPRAZOLE 40 MG TABLET PO SCH (21:54)
[2021-10-14] MEDS: HEPARIN SODIUM,PORCINE/PF 5,000 UNIT/0.5 ML SYRINGE SQ SCH ×2 (07:57→20:04)
[2021-10-14] MEDS: FINASTERIDE 5 MG TAB PO SCH (07:58)
[2021-10-14] MEDS: FORMOTEROL FUMARATE 20 MCG/2 ML NEBU INHALATION SCH ×2 (09:10→19:59)
[2021-10-14] MEDS: IPRATROPIUM 0.5 MG/2.5 ML NEBU INHALATION SCH ×4 (09:10→19:59)
[2021-10-14] MEDS: traMADol 50 MG TAB PO PRN (11:37)
--- NOTE | 2021-10-14 11:45 | P.PN ---
<Emiliana Martinez - Last Filed: 10/14/21 11:41> Subjective Progress Note Date: 10/14/21 CHIEF COMPLAINT: Fall HISTORY OF PRESENT ILLNESS: Patient sitting at bedside chair. His left arm is in a sling. He is receiving his breathing treatment. Patient reports that his pain is controlled. He is tolerating diet. Denies any new pain. He is scheduled for an MRI of the brain today. He reports that his speech is now norm al. She felt that his speech was a little slurred again this morning. He is followed by neurology. Afebrile. No new labs PHYSICAL EXAM: VITAL SIGNS: Reviewed. GENERAL: Well-developed in no acute distress. HEENT: No sclera icterus. Extraocular movements grossly intact. Moist buccal mucosa. Head is normocephalic. Right periorbital ecchymosis ABDOMEN: Soft. Nondistended. Nontender. NEUROLOGIC: Alert and oriented. Cranial nerves II through XII grossly intact. Extremities left arm in sling. +2 radial pulse ASSESSMENT: 1. Fall with fracture of left humerus 2. Laceration above the right eyebrow with bruising around right orbit 3. Syncopal episode PLAN: -Patient scheduled for MRI of the brain for dysarthria -Patient to be discharged to [facility] -Anticipate discharge possibly tomorrow -Continue supportive care Physician Tenderizer Tender note has been reviewed by physician. Signing provider agrees with the documented findings, assessment, and plan of care. Objective - Vital Signs Vital signs: Vital Signs Temp 98.2 F 10/14/21 07:00 Pulse 92 10/14/21 09:30 Resp 18 10/14/21 07:00 BP 104/72 10/14/21 07:00 Pulse Ox 98 10/14/21 07:00 Intake & Output 10/13/21 10/14/21 10/14/21 18:59 06:59 18:59 Intake Total 354 Output Total 200 900 Balance 154 -900 Intake: Oral 354 Output: Urine 200 900 Other: Voiding Method Urinal # Voids 1 2 - Labs CBC & Chem 7: 10/10/21 17:31 10/11/21 07:21 <Jimmie Urban - Last Filed: 10/14/21 17:37> Subjective I have personally seen and examined the patient, reviewed the [employer]ICE PRESIDENT [employer]ALENT MANAGEMENT /PAs history, exam and MDM and agree with the assessment and plan as written. Based on total visit time, I have performed more than 50% of the visit. As above: Patient doing well today. No seen if in pain. He has been seen by neurology and MRI of the brain has been ordered. Await their evaluation of that study and any further plans. Objective - Vital Signs Vital signs: Vital Signs Temp 98.2 F 10/14/21 14:58 Pulse 96 10/14/21 16:50 Resp 16 10/14/21 14:58 BP 121/79 10/14/21 14:58 Pulse Ox 95 10/14/21 14:58 Intake & Output 10/13/21 10/14/21 10/14/21 18:59 06:59 18:59 Intake Total 354 358 Output Total 200 900 750 Balance 154 -900 -392 Intake: Oral 354 358 Output: Urine 200 900 750 Other: Voiding Method Urinal # Voids 1 2 - Labs CBC & Chem 7: 10/10/21 17:31 10/11/21 07:21 Assessment and Plan (1) Fall Current Visit: Yes Status: Acute Code(s): W19.XXXA - UNSPECIFIED FALL, INITIAL ENCOUNTER SNOMED Code(s): 1854164
--- NOTE | 2021-10-14 15:12 | P.PN ---
Subjective Progress Note Date: 10/14/21 The patient is seen at bedside and feels his dysarthria has improved. He said this is chronic and comes and goes. Otherwise denies of any new neurological problems. Objective - Vital Signs Vital signs: Vital Signs Temp 98.2 F 10/14/21 14:58 Pulse 99 10/14/21 14:58 Resp 16 10/14/21 14:58 BP 121/79 10/14/21 14:58 Pulse Ox 95 10/14/21 14:58 Intake & Output 10/13/21 10/14/21 10/14/21 18:59 06:59 18:59 Intake Total 354 358 Output Total 200 900 750 Balance 154 900 -392 Intake: Oral 354 358 Output: Urine 200 900 750 Other: Voiding Method Urinal # Voids 1 2 - Exam GENERAL: The patient is lying in bed and is not in acute distress. NEUROLOGICAL: Higher mental function: The patient is awake, alert, oriented to self, place and time. Patient is following commands. No aphasia and no neglect. Cranial nerves: The pupils are round, equal and reactive to light. Visual kuhn are full to confrontation throughout. Extraocular movement is intact no nystagmus is noted. Facial sensation is normal to touch throughout. The facial strength is normal throughout. Hearing is moderately decreased bilaterally to hand rub. Tongue is midline and moved [id number] without any difficulty. No dysarthria noted. Shoulder shrug is normal on right but limited on left because of pain. Motor: Gait is deferred. The strength is left upper extremity is limited because of pain (wearing arm sling). Otherwise 5 over 5 throughout. Normal tone and bulk. Cerebellum: Normal finger to nose over right and could not assess left. Sensation: Sensation is normal to touch throughout. Reflexes (right/left):1+ throughout. WORK-UP: CT of the head is reported as no acute intracranial hemorrhage, mass effect or midline shift is seen. CT cervical spine was reported as there is no acute fracture or dislocation e vident in the cervical spine. There is prominent multifocal cervical spondylosis changes are noted. I personally reviewed the CT of the head and there is no acute subacute ischemia no intra-parenchymal hemorrhage. 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 I also reviewed the CT of cervical spine and felt the the cervical spondylosis is moderate in severity over C5-C6. I agree there is no fracture. Carotid duplex was reported as images and measurements suggest less than 20% stenosis in both internal carotid arteries. There is antegrade flow in the vertebral arteries. - Labs CBC & Chem 7: 10/10/21 17:31 10/11/21 07:21 Assessment and Plan Assessment: Acute on Chronic dysarthria. Rule out TIA/stroke. Cannot rule out other underlying process. History of recurrent dysarthria. Possible TIA that is reported. Fall without LOC: Unsure cause Acute proximal left humeral fracture due to fall Cervical spondylosis I felt was moderate severity over C5-C6 Osteoarthritis History of asthma Plan: Ordered MRI Brain w/o (patient and his son wants to pursue with MRI) to rue out stroke or cause of stroke from neurological perspective. If MRI Brain is negative for acute or subacute ischemic stroke and he continues to have dysarthria that is worse from baseline then recommend to follow-up with Ne urologist as outpatient and ENT as outpatient. If he does have stroke on imaging then will get rest of stroke work-up. To continue the same dose of aspirin 162 mg daily when stable. Is on Lipitor 10mg daily at bedtime which is sufficient enough for secondary stroke prophylaxis PT, OT and CATTLE DIPPER are is consulted Continue neuro checks. Cardiology is consulted for syncope. Recommend the patient to follow-up with orthopedic team regarding his cervical spondylosis We'll defer the rest of medical management to the primary and the general surgery team. If MRI I negative for stroke then patient is clear from neurological perspective and recommend further work-up as outpatient with neurologist and ENT for further investigation. The plan was discussed with the patient. James Becker M.D. Neurology was Time with Patient: Less than 30
--- NOTE | 2021-10-14 15:12 | P.PN ---
<Matt Landry - Last Filed: 10/14/21 14:54> Subjective Progress Note Date: 10/14/21 Hospital course: Patient is a pleasant 89-year-old male with a past medical history of BPH, osteoarthritis, GERD, COPD and hyperlipidemia. He presented to the emergency department on 10/10/21 after sustaining a fall resulting in left humeral fracture. Patient has been admitted under Gen. surgery team and we have been consulted for continued medical management. Neurology was also consulted secondary to acute exacerbation of chronic dysarthria. Patient's left arm has been placed in a sling and he is being given Tylenol and tramadol as needed for pain management. CT head and cervical spine was negative for acute intercranial abnormalities and showed no signs of acute fractures or dislocation in the cervical spine. Chest x-ray negative for acute cardiopulmonary process and humerus x-ray was positive for left proximal humeral displaced fracture. CTA upper extremities revealed proximal left humerus fx. EKG revealed NSR at 94 bpm with a 1st degree AV block with OR interval of 225 ms. Carotid dopplers reveal less than 20% stenosis of both internal carotid arteries. Troponins negative. CBC and CMP unremarkable. Urinalysis showing no signs of blood, protein, or infection. Covid PCR negative. Awaiting MRI to be completed. Physical exam: Patient was seen and fully evaluated at bedside this morning. He reports mild discomfort in left upper extremity otherwise denies having any complaints including headache, lightheadedness, dizziness, chest pain, palpitations, shortness of breath, or experiencing any numbness/tingling/weakness in his extremities.. Patient does report periods of short term memory loss just prior to fall. Patient states he does not remember hitting his head or the laceration to his right eyebrow. Speech is clear patient had minimal difficulties noted during assessment this morning. Patient awaiting MRI to be completed. Plan is for discharge to [facility] vs [facility]. Vital signs reviewed and stable. General: Nontoxic, no distress and appears stated age. Derm: Skin warm and dry, normal coloration for ethnicity. Head: Normocephalic and symmetric. Eyes: EOMs intact, no lid lag, and anicteric sclera. Right periorbital echymosis. Mouth: no lip lesions, mucus membranes moist Cardiovascular: regular rate and rhythm with normal S1S2, no murmur, positive posterior tibial pulses bilaterally, and cap refill < 2 seconds. Lungs: Respirations even, regular, and unlabored on room air. Lungs CTA bilaterally, no rhonchi, no rales, no wheezing, and no accessory muscle usage. Abdominal: soft, nontender to palpation, no guarding, no appreciable organomegaly Ext: ROM intact with the exception of left upper extremity currently in sling. Movement and sensation of left hand intact. Radial and posterior tibial pulses palpated laterally. Neuro: Speech clear with minimal dysarthria noted, face symmetrical and CN II- XII grossly intact with no noted focal neuro deficits Psych: Alert and oriented to person, place, time, and situation. Appropriate and pleasant affect. Assessment and Plan of Care: Syncope versus TIA, with recurrent dysarthria Fall resulting in left humeral fracture Head injury resulting in laceration right eyebrow with surrounding ecchymosis to right periorbital region. Cervical spondylosis Osteoarthritis -Management per primary admitting general surgery team. -Fall precautions -Neuro checks -Neurology following, appreciate further recommendations -Cardiology following recommended discharging on day event monitor Hyperlipidemia Continue daily medication regimen with atorvastatin 10 mg nightly. COPD not in acute exacerbation -Continue formoterol fumarate twice daily BPH -Continue Proscar and Flomax GERD -Continue daily medication regimen with Protonix 40 mg nightly. Thank you for allowing us to participate in the care of this pleasant patient. Do not hesitate to contact us with questions. Someone can be reached from the [facility] hospitalist group all hours of the day at [phone] or via perfect serve. Objective - Vital Signs Vital signs: Vital Signs Temp 98.2 F 10/14/21 07:00 Pulse 92 10/14/21 09:30 Resp 18 10/14/21 07:00 BP 104/72 10/14/21 07:00 Pulse Ox 98 10/14/21 07:00 Intake & Output 10/13/21 10/14/21 10/14/21 18:59 06:59 18:59 Intake Total 354 Output Total 200 900 Balance 154 -900 Intake: Oral 354 Output: Urine 200 900 Other: Voiding Method Urinal # Voids 1 2 - Labs CBC & Chem 7: 10/10/21 17:31 10/11/21 07:21 <Kenya Damon - Last Filed: 10/14/21 18:13> Subjective I reviewed the documentation as provided by the TOM above, who is the original author of this note. I agree with the documented assessment and plan, with the following changes: None Objective - Vital Signs Vital signs: Vital Signs Temp 98.2 F 10/14/21 14:58 Pulse 96 10/14/21 16:50 Resp 16 10/14/21 14:58 BP 121/79 10/14/21 14:58 Pulse Ox 95 10/14/21 14:58 Intake & Output 10/13/21 10/14/21 10/14/21 18:59 06:59 18:59 Intake Total 354 358 Output Total 200 900 750 Balance 154 900 392 Intake: Oral 354 358 Output: Urine 200 900 750 Other: Voiding Method Urinal # Voids 1 2 - Labs CBC & Chem 7: 10/10/21 17:31 10/11/21 07:21
--- NOTE | 2021-10-14 15:31 | MR ---
MR brain without contrast HISTORY: Dysarthria, syncope Multiplanar multisequence imaging through the brain. 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 Confluent and scattered periventricular, pericallosal and subcortical hyperintensities are present on inversion recovery T2-weighted sequences, too numerous to count lesions are present. On the T2 star, to lesser extent inversion recovery and T2-weighted images there is a focus of low signal present wi thin the right occipital lobe measuring 6 mm suggesting a small focus of hemosiderin or hemorrhage no t seen on CT. The orbits are symmetric. There is extensive inflammatory change present within the max illary sinuses with air-fluid levels, ethmoid air cells. Motion is present on the exam. Cerebellopontine angles, corpus callosum, pituitary, cervical medullar y junction are within normal limits. IMPRESSION: Age-related changes of atrophy and chronic small vessel ischemia. No evident subacute isc hemia. Extensive sinus disease, correlate from x-ray sinusitis. Focus of likely hemosiderin versus he morrhage as described right occipital lobe. Additional findings above.
[2021-10-14] MEDS: ATORVASTATIN 10 MG TAB PO SCH (17:33)
[2021-10-14] MEDS: TAMSULOSIN 0.4 MG CAP.ER.24H PO SCH (17:33)
[2021-10-14] MEDS: PANTOPRAZOLE 40 MG TABLET PO SCH (20:03)
[2021-10-15 07:02] VITALS: RESP 16
[2021-10-15] MEDS: FORMOTEROL FUMARATE 20 MCG/2 ML NEBU INHALATION SCH (07:27)
[2021-10-15] MEDS: IPRATROPIUM 0.5 MG/2.5 ML NEBU INHALATION SCH ×3 (07:29→16:36)
[2021-10-15] MEDS: HEPARIN SODIUM,PORCINE/PF 5,000 UNIT/0.5 ML SYRINGE SQ SCH (08:41)
[2021-10-15] MEDS: FINASTERIDE 5 MG TAB PO SCH (08:41)
[2021-10-15] MEDS: traMADol 50 MG TAB PO PRN (08:41)
--- NOTE | 2021-10-15 10:43 | CT ---
EXAMINATION TYPE: CT brain wo con DATE OF EXAM: 10/15/2021 COMPARISON: CT brain 10/10/2021, MRI 10/14/2021 HISTORY: Questionable bleed right occipital mri CT DLP: 1204 mGycm Automated exposure control for dose reduction was used. Helical imaging through the brain. FINDINGS: There is no interval change. Brain shows stable density. Focus of low signal seen on MRI is not appar ent on CT as on prior exam. Findings on MRI consistent with hemosiderin thomas on T2 imaging. Cortical atrophy is noted. There is no hemorrhage or hydrocephalus. White matter demyelination changes are ag ain seen. Inflammatory change present within the maxillary sinuses bilaterally, ethmoid air cells. IMPRESSION: STABLE FINDINGS. NO EVIDENT HEMORRHAGE.
[2021-10-15 12:08] LABS: HCT 32.9 % (39.6-50.0); HGB 10.6 g/dL (13.0-17.0); MCH 30.8 pg (27.0-32.0); MCHC 32.2 g/dL (32.0-37.0); MCV 95.6 fL (80.0-97.0); Mean Platelet Volume 9.3 fL (9.5-12.2); NRBC Per 100 WBC 0 /100 WBCS (0.0-0.0); Platelet Count 264 X 10*3/uL (140-440); RBC 3.44 X 10*6/uL (4.40-5.60); RDW 12.5 % (11.5-14.5); WBC 9.19 X 10*3/uL (4.50-10.00)
[2021-10-15 12:32] LABS: African American GFR (CKD) 97.8 (60.0-200.0); Albumin 3.1 g/dL (3.8-4.9); Albumin/Globulin Ratio 1.4 (1.60-3.17); Anion Gap 9.5 mmol/L (10.00-18.00); BUN/Creat Ratio 25.84 Ratio (12.00-20.00); Blood Urea Nitrogen 17.7 mg/dL (9.0-27.0); Calcium 8.6 mg/dL (8.7-10.3); Globulin 2.2 g/dL (1.6-3.3); Non-African American GFR(CKD) 84.4 (60.0-200.0); Potassium 4.5 mmol/L (3.5-5.5); Total Bilirubin 1.2 mg/dL (0.30-1.20); Total Protein 5.2 g/dL (6.2-8.2)
--- NOTE | 2021-10-15 12:39 | P.PN ---
Subjective Progress Note Date: 10/15/21 The patient seen at bedside and he continues to feel his dysarthria has improved. He denies of any new neurological issues. Objective - Vital Signs Vital signs: Vital Signs Temp 98.1 F 10/15/21 07:00 Pulse 92 10/15/21 11:28 Resp 16 10/15/21 11:28 BP 98/79 10/15/21 07:00 Pulse Ox 92 L 10/15/21 07:30 Intake & Output 10/14/21 10/15/21 10/15/21 18:59 06:59 18:59 Intake Total 716 Output Total 750 350 125 Balance -34 -350 -125 Intake: Oral 716 Output: Urine 750 350 125 Other: Voiding Method Urinal Urinal # Voids 1 - Exam GENERAL: The patient is lying in bed and is not in acute distress. NEUROLOGICAL: Higher mental function: The patient is awake, alert, oriented to self, place and time. Patient is following commands. No aphasia and no neglect. Cranial nerves: The pupils are round, equal and reactive to light. Visual kuhn are full to confrontation throughout. Extraocular movement is intact no nystagmus is noted. Facial sensation is normal to touch throughout. The facial strength is normal throughout. Hearing is moderately decreased bilaterally to hand rub. Tongue is midline and moved [id number] without any difficulty. No dysarthria noted. Shoulder shrug is normal on right but limited on left because of pain. Motor: Gait is deferred. The strength is left upper extremity is limited because of pain (wearing arm sling). Otherwise 5 over 5 throughout. Normal tone and bulk. Cerebellum: Normal finger to nose over right and could not assess left. Sensation: Sensation is normal to touch throughout. Reflexes (right/left):1+ throughout. WORK-UP: CT of the head is reported as no acute intracranial hemorrhage, mass effect or midline shift is seen. CT cervical spine was reported as there is no acute fracture or dislocation evident in the cervical spine. There is prominent multifocal cervical spondylosis changes are noted. I personally reviewed the CT of the head and there is no acute subacute ischemia no intra-parenchymal hemorrhage. 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 I also reviewed the CT of cervical spine and felt the the cervical spondylosis is moderate in severity over C5-C6. I agree there is no fracture. Carotid duplex was reported as images and measurements suggest less than 20% stenosis in both internal carotid arteries. There is antegrade flow in the vertebral arteries. MRI of the brain is reported as age-related changes of atrophy and chronic small vessel ischemia. No evidence of acute ischemia. Extensive sinus disease, correlate for x-rays sinusitis. Focus for likely hemosiderin versus hemorrhage in the right occipital lobe. - Labs CBC & Chem 7: 10/15/21 07:33 10/15/21 07:33 Labs: Abnormal Lab Results - Last 24 Hours (Table) 10/15/21 10/15/21 Range/Units 07:33 07:33 RBC 3.44 L (4.40-5.60) X 10*6/uL Hgb 10.6 L (13.0-17.0) g/dL Hct 32.9 L (39.6-50.0) % MPV 9.3 L (9.5-12.2) fL Sodium 133 L (135-145) mmol/L Anion Gap 9.50 L (10.00-18.00) mmol/L BUN/Creatinine Ratio 25.84 H (12.00-20.00) Ratio Glucose 122 H (70-110) mg/dL Calcium 8.6 L (8.7-10.3) mg/dL Total Protein 5.2 L (6.2-8.2) g/dL Albumin 3.1 L (3.8-4.9) g/dL Albumin/Globulin Ratio 1.40 L (1.60-3.17) g/dL Assessment and Plan Assessment: Acute on Chronic dysarthria. Rule out TIA/stroke. Cannot rule out other underlying process. History of recurrent dysarthria. Possible TIA that is reported. Fall without LOC: Unsure cause Acute proximal left humeral fracture due to fall Cervical spondylosis I felt was moderate severity over C5-C6 Osteoarthritis History of asthma Plan: CT of the head is reported as no acute intracranial hemorrhage, mass effect or midline shift is seen. CT cervical spine was reported as there is no acute fracture or dislocation evident in the cervical spine. There is prominent multifocal cervical spondylosis changes are noted. I personally reviewed the CT of the head and there is no acute subacute ischemia no intra-parenchymal hemorrhage. 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 I also reviewed the CT of cervical spine and felt the the cervical spondylosis is moderate in severity over C5-C6. I agree there is no fracture. Carotid duplex was reported as images and measurements suggest less than 20% stenosis in both internal carotid arteries. There is antegrade flow in the vertebral arteries. MRI of the brain is reported as age-related changes of atrophy and chronic small vessel ischemia. No evidence of acute ischemia. Extensive sinus disease, correlate for x-rays sinusitis. Focus for likely hemosiderin versus hemorrhage in the right occipital lobe. I ordered a repeat CT of the head to rule out any hemorrhage on 10/15/2021 and it's reported a stable finding. No evident hemorrhage. I recommend to follow-up with Neurologist as outpatient and ENT as outpatient since patient is having repeat acute on chronic dysarthria for further investigation as outpatient. To continue home dose of aspirin 162 mg daily when stable. Is on Lipitor 10mg daily at bedtime which is sufficient enough for secondary stroke prophylaxis PT, OT and DORR OPERATOR are is consulted Continue neuro checks. Recommend the patient to follow-up with orthopedic team regarding his cervical spondylosis We'll defer the rest of medical management to the primary and the general surgery team. There is no further neurological work-up. Patient is clear from neurological perspective. The plan was discussed with the patient and his nurse. James Becker M.D. Neurology was Time with Patient: Less than 30
--- NOTE | 2021-10-15 13:16 | P.PN ---
Subjective Progress Note Date: 10/15/21 Hospital course: Patient is a pleasant 89-year-old male with a past medical history of BPH, osteoarthritis, GERD, COPD and hyperlipidemia. He presented to the emergency department on 10/10/21 after sustaining a fall resulting in left humeral fracture. Patient has been admitted under Gen. surgery team and we have been consulted for continued medical management. Neurology was also consulted secondary to acute exacerbation of chronic dysarthria. Patient's left arm has been placed in a sling and he is being given Tylenol and tramadol as needed for pain management. CT head and cervical spine was negative for acute intercranial abnormalities and showed no signs of acute fractures or dislocation in the cervical spine. Chest x-ray negative for acute cardiopulmonary process and humerus x-ray was positive for left proximal humeral displaced fracture. CTA upper extremities revealed proximal left humerus fx. EKG revealed NSR at 94 bpm with a 1st degree AV block with RI interval of 225 ms. Carotid dopplers reveal less than 20% stenosis of both internal carotid arteries. Troponins negative. CBC and CMP unremarkable. Urinalysis showing no signs of blood, protein, or infection. Covid PCR negative. Awaiting MRI to be completed. Physical exam: Patient was seen and fully evaluated at bedside this morning. He was sitting up at bedside in chair. He reports feeling well this morning and states pain and left arm controlled. Patient's speech was clear and he remained alert to person, place, time, and situation. He continues to deny having any complaints including headache, lightheadedness, dizziness, chest pain, palpitations, shortness of breath, or experiencing any numbness/tingling/weakness in his extremities. Awaiting morning labs to result. MRI completed yesterday revealed age related changes of atrophy and chronic small vessel ischemia with no evident subacute ischemia, extensive sinus disease, and focus of likely hemosiderin versus hemorrhage as described to write a subtotal lobe. Repeat CT completed this morning showing stable findings with no evidence of hemorrhage. General surgery planning for discharge to [facility] vs [facility] later today. Patient medically stable for discharge to subacute rehab facility. Vital signs reviewed and stable. General: Nontoxic, no distress and appears stated age. Derm: Skin warm and dry, normal coloration for ethnicity. Head: Normocephalic and symmetric. Eyes: EOMs intact, no lid lag, and anicteric sclera. Right periorbital echymosis. Mouth: no lip lesions, mucus membranes moist Cardiovascular: regular rate and rhythm with normal S1S2, no murmur, positive posterior tibial pulses bilaterally, and cap refill < 2 seconds. Lungs: Respirations even, regular, and unlabored on room air. Lungs CTA tracy aterally, no rhonchi, no rales, no wheezing, and no accessory muscle usage. Abdominal: soft, nontender to palpation, no guarding, no appreciable organomegaly Ext: ROM intact with the exception of left upper extremity currently in sling. Movement and sensation of left hand intact. Radial and posterior tibial pulses palpated laterally. Neuro: Speech clear, face symmetrical and CN II-XII grossly intact with no noted focal neuro deficits Psych: Alert and oriented to person, place, time, and situation. Appropriate and pleasant affect. Syncope versus TIA, with recurrent dysarthria Fall resulting in left humeral fracture Head injury resulting in laceration right eyebrow with surrounding ecchymosis to right periorbital region. Cervical spondylosis Osteoarthritis -Management per primary admitting general surgery team. -Fall precautions -Neuro checks -Neurology following, appreciate further recommendations -Cardiology following recommended discharging on day event monitor Hyperlipidemia Continue daily medication regimen with atorvastatin 10 mg nightly. COPD not in acute exacerbation -Continue formoterol fumarate twice daily BPH -Continue Proscar and Flomax GERD -Continue daily medication regimen with Protonix 40 mg nightly. Thank you for allowing us to participate in the care of this pleasant patient. Do not hesitate to contact us with questions. Someone can be reached from the [facility] hospitalist group all hours of the day at [phone] or via perfect serve. Objective - Vital Signs Vital signs: Vital Signs Temp 98.1 F 10/15/21 07:00 Pulse 92 10/15/21 11:28 Resp 16 10/15/21 11:28 BP 98/79 10/15/21 07:00 Pulse Ox 92 L 10/15/21 07:30 Intake & Output 10/14/21 10/15/21 10/15/21 18:59 06:59 18:59 Intake Total 716 Output Total 750 350 125 Balance -34 -350 -125 Intake: Oral 716 Output: Urine 750 350 125 Other: Voiding Method Urinal Urinal # Voids 1 - Labs CBC & Chem 7: 10/15/21 07:33 10/15/21 07:33 Labs: Abnormal Lab Results - Last 24 Hours (Table) 10/15/21 10/15/21 Range/Units 07:33 07:33 RBC 3.44 L (4.40-5.60) X 10*6/uL Hgb 10.6 L (13.0-17.0) g/dL Hct 32.9 L (39.6-50.0) % MPV 9.3 L (9.5-12.2) fL Sodium 133 L (135-145) mmol/L Anion Gap 9.50 L (10.00-18.00) mmol/L BUN/Creatinine Ratio 25.84 H (12.00-20.00) Ratio Glucose 122 H (70-110) mg/dL Calcium 8.6 L (8.7-10.3) mg/dL Total Protein 5.2 L (6.2-8.2) g/dL Albumin 3.1 L (3.8-4.9) g/dL Albumin/Globulin Ratio 1.40 L (1.60-3.17) g/dL
--- NOTE | 2021-10-15 14:12 | P.DS ---
<Emiliana Martinez - Last Filed: 10/15/21 14:01> Providers Expected date of discharge: 10/15/21 Hospital Course: Discharge diagnosis 1. Fall with fracture of left humerus 2. Laceration above the right eyebrow with bruising around right orbit 3. Syncopal episode 4. 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 Patient reports initially yesterday morning he had been sitting at his table drinking coffee and thinks he passed out. He does not recall the event. However when he came to the noted to have bruising around his right eye. Later in the day he was doing work at his [employer] and went to put his walker back into the trunk of the car stepped back and lost his balance and fell landing on his left arm. He was unable to get up. He had 2 wave down a bystander for help. Patient reports no loss of consciousness. Denies any injury to his head. EMS found that the shoulder was dislocated they reduce the shoulder at the scene. X-ray does show evidence of a left proximal humerus displaced fracture. Orthopedics are following. Patient denies any history of any cardiac arrhythmias. Patient has been evaluated by cardiology. Patient also had a laceration above the right eyebrow ER physician closed with Dermabond. Patient evaluated by neurology during this admission. He had MRIs and CAT scans completed of the brain. MRI shows age-related changes of atrophy and chronic small vessel ischemia. No evidence of acute ischemia. Extensive sinus disease. Focus of likely hemosiderin versus hemorrhage in the right occipital lobe. Neurology ordered a computed tomography scan of the brain which shows no evidence of hemorrhage. Neurology has cleared patient for discharge. They do recommend that patient follows up with neurology and ENT outpatient for his dysarthria. Patient also seen evaluated by orthopedics for his left humerus fracture. Arm is in a sling. His pain is controlled. Patient is tolerating diet. He [facility] be [facility] to [facility] for further rehab. Patient also seen by car diology regarding syncopal episode. The recommending event monitor outpatient. Patient has been cleared by all consulting physicians. Please refer to chart for any further details. He is stable for discharge. Physician Park Guard note has been reviewed by physician. Signing provider agrees with the documented findings, assessment, and plan of care. Patient Condition at Discharge: Stable Plan - Discharge Summary Discharge Rx Participant: No New Discharge Prescriptions: New Acetaminophen Tab [Tylenol] 650 mg PO Q4HR PRN tab PRN Reason: Fever And/ Or Pain traMADol HCl [Ultram] 50 mg PO TID PRN #9 tab PRN Reason: Pain Continue Cyanocobalamin [Vitamin B-12 Injection] 1,000 mcg SQ Q30D Finasteride [Proscar] 5 mg PO DAILY Tamsulosin [Flomax] 0.4 mg PO PC-SUPPER Omeprazole 20 mg PO HS Multivitamins, Thera [Multivitamin (formulary)] 1 tab PO HS Atorvastatin Calcium [Lipitor] 10 mg PO PC-SUPPER Umeclidinium Brm/Vilanterol Tr [Anoro Ellipta 62.5-25 Mcg INH] 1 puff INHALATION RT-HS Aspirin EC [Ecotrin Low Dose] 162 mg PO DAILY Prevagen 1 cap PO HS Discharge Medication List Cyanocobalamin [Vitamin B-12 Injection] 1,000 mcg SQ Q30D 09/27/15 [History] Finasteride [Proscar] 5 mg PO DAILY 08/01/18 [History] Multivitamins, Thera [Multivitamin (formulary)] 1 tab PO HS 05/28/20 [History] Omeprazole 20 mg PO HS 05/28/20 [History] Tamsulosin [Flomax] 0.4 mg PO PC-SUPPER 05/28/20 [History] Atorvastatin Calcium [Lipitor] 10 mg PO PC-SUPPER 09/22/20 [History] Aspirin EC [Ecotrin Low Dose] 162 mg PO DAILY 10/10/21 [History] Prevagen 1 cap PO HS 10/10/21 [History] Umeclidinium Brm/Vilanterol Tr [Anoro Ellipta 62.5-25 Mcg INH] 1 puff INHALATION RT-HS 10/10/21 [History] Acetaminophen Tab [Tylenol] 650 mg PO Q4HR PRN tab 10/14/21 [Rx] traMADol HCl [Ultram] 50 mg PO TID PRN #9 tab 10/15/21 [Rx] Follow up Appointment(s)/Referral(s): Ann Jordan MD [REFERRING] - 1 Week Rocco Rose MD [Primary Care Provider] - 1-2 days Rocco Nunes MD [STAFF PHYSICIAN] - 11/20/21 2:15 pm Cooper Gutierrez MD [REFERRING] - 1 Week Lore Low [NON-STAFF] - 1-2 Days Tom Coley MD [STAFF PHYSICIAN] - 1 Week Rick Smith MD [STAFF PHYSICIAN] - 2 Weeks Activity/Diet/Wound Care/Special Instructions: Cardiology Discharge Instructions: An event heart monitor will be mailed to you at home. Please follow instructions to place monitor on. If you have questions please call the [facility] office at [phone] Att[facility] Device [facility] Follow up with Dr. Nunes in the office on November 20, 2021 after 30 day event robinson tor Arm sling for comfort. Follow up with Dr. Smtih in 2 weeks. Discharge Disposition: TRANSFER TO SNF/ECF <Jimmie Urban - Last Filed: 10/15/21 14:47> Providers Date of admission: 10/12/21 10:03 Attending physician: Jimmie Urban Consults: 10/10/21 19:54 Consult Physician Urgent Consulting Provider: Libertad Montes De Oca Consult Reason/Comments: humerus fx Do you want consulting provider notified?: Already Contacted 10/10/21 19:55 Consult Physician Routine Consulting Provider: Altagracia Cuevas Consult Reason/Comments: syncope Do you want consulting provider notified?: Yes 10/11/21 03:43 Consult Physician Routine Consulting Provider: Chu Gunn Consult Reason/Comments: syncope Do you want consulting provider notified?: Yes, Notify in am 10/11/21 08:57 Consult Physician Routine Consulting Provider: Rita Monteiro Consult Reason/Comments: patient Dr. Funez Do you want consulting provider notified?: Yes 10/13/21 11:30 Consult Physician Routine Consulting Provider: James Becker Consult Reason/Comments: Slurred speech after fall Do you want consulting provider notified?: Yes Primary care physician: Rocco Rose MD - Discharge Diagnosis(es) (1) Fall Current Visit: Yes Status: Acute Hospital Course: I have personally seen and examined the patient, reviewed the NUDE MODEL /PAs history, exam and MDM and agree with the assessment and plan as written. Based on total visit time, I have performed more than 50% of the visit. As above: Patient doing well today. He has been cleared by discharge by our consultants. Follow-up with orthopedics primary care and cardiology after discharge.
[2021-10-15 15:27] VITALS: BP 114/80; PULSE 98; TEMP 98
== END 2021-10-15 17:56 | DRG 563 ==
LOC: EC 16:03 → 6NMEDSUR 19:53 → OBSVTOIN 10-12 10:03
PROVIDERS: ADMIT Surgery; ATTEND Surgery
DX: S42.202A Unspecified fracture of upper end of left humerus, initial encounter for closed fracture (principal); R55 Syncope and collapse; W19.XXXA Unspecified fall, initial encounter; E78.5 Hyperlipidemia, unspecified; Z86.73 Personal history of transient ischemic attack (TIA), and cerebral infarction without residual deficits; I44.0 Atrioventricular block, first degree; Z20.822 Contact with and (suspected) exposure to COVID-19; G31.9 Degenerative disease of nervous system, unspecified; I65.23 Occlusion and stenosis of bilateral carotid arteries; J44.9 Chronic obstructive pulmonary disease, unspecified; M47.812 Spondylosis without myelopathy or radiculopathy, cervical region; N40.0 Benign prostatic hyperplasia without lower urinary tract symptoms; R29.6 Repeated falls; S01.81XA Laceration without foreign body of other part of head, initial encounter; W01.0XXA Fall on same level from slipping, tripping and stumbling without subsequent striking against object, initial encounter; S00.11XA Contusion of right eyelid and periocular area, initial encounter; Z79.82 Long term (current) use of aspirin; Z79.899 Other long term (current) drug therapy; Z82.3 Family history of stroke; Z82.49 Family history of ischemic heart disease and other diseases of the circulatory system; Z87.891 Personal history of nicotine dependence; Z96.651 Presence of right artificial knee joint; R47.1 Dysarthria and anarthria
CPT/HCPCS: 36415; 70450; 70551; 71045; 72125; 72170; 80048; 80053; 81003; 83735; 84484; 85025; 85027; 85610; 85730; 87635; 93005; 93880; 94640; 94760; 99285

== ENCOUNTER → 2022-01-30 | Outpatient (CLI) | payer MEDICARE, BC ==
--- NOTE | 2022-01-31 13:12 | US ---
EXAMINATION TYPE: US groin RT DATE OF EXAM: 01/30/2022 COMPARISON: NONE CLINICAL HISTORY: R59.0. Ultrasound of the bilateral groins was performed. There are prominent lymph nodes noted bilaterally w ith lymph nodes measuring less than 1 cm in short axis. IMPRESSION: As above
== END | disposition home or self-care (01) ==
LOC: RADUSWWP 15:38
PROVIDERS: ATTEND Internal Medicine
DX: R59.0 Localized enlarged lymph nodes (principal)